=== PATIENT | female | born 1990 | race Caucasian/White ===

== ENCOUNTER 2016-11-02 10:07 | Outpatient (CLI) | payer MEDICAID | END 2016-11-02 12:20 | disposition home or self-care (01) | DX: O13.3 Gestational [pregnancy-induced] hypertension without significant proteinuria, third trimester (principal); Z3A.40 40 weeks gestation of pregnancy ==

== ENCOUNTER 2016-11-05 09:05 | Outpatient (CLI) | payer MEDICAID | END 2016-11-05 12:45 | disposition home or self-care (01) | DX: O10.013 Pre-existing essential hypertension complicating pregnancy, third trimester (principal); Z3A.39 39 weeks gestation of pregnancy; O99.333 Smoking (tobacco) complicating pregnancy, third trimester; F17.210 Nicotine dependence, cigarettes, uncomplicated; O99.213 Obesity complicating pregnancy, third trimester; E66.9 Obesity, unspecified ==

== ENCOUNTER 2016-11-12 07:26 | Emergency (ER) | payer MEDICAID ==
[2016-11-12] MEDS ORDERED: MORPHINE 2 MG/ML SYRINGE IVP STA ×2 (08:00→09:57)
[2016-11-12] MEDS ORDERED: SODIUM CHLORIDE 0.9% 1,000 ML IV ONE (08:00)
[2016-11-12] MEDS ORDERED: MORPHINE 2 MG/ML SYRINGE ONE ×2 (08:04→10:07)
== END 2016-11-12 11:10 | disposition home or self-care (01) ==
DX: O86.0 Infection of obstetric surgical wound (principal); L03.311 Cellulitis of abdominal wall; O90.0 Disruption of cesarean delivery wound; O99.335 Smoking (tobacco) complicating the puerperium

== ENCOUNTER 2016-12-02 15:14 | Outpatient (CLI) | payer MEDICAID | END 2016-12-02 15:15 | disposition home or self-care (01) | DX: R30.0 Dysuria (principal) ==

== ENCOUNTER 2016-12-07 11:07 | Emergency (ER) | payer MEDICAID ==
[2016-12-07] MEDS ORDERED: ACETAMINOPHEN 325 MG TABLET PO STA (12:17)
[2016-12-07] MEDS ORDERED: ACETAMINOPHEN 325 MG TABLET PO ONE (12:20)
== END 2016-12-07 13:30 | disposition left against medical advice (07) ==
DX: R10.9 Unspecified abdominal pain (principal); R50.9 Fever, unspecified; F17.200 Nicotine dependence, unspecified, uncomplicated; Z53.20 Procedure and treatment not carried out because of patient's decision for unspecified reasons

== ENCOUNTER 2016-12-07 18:03 | Emergency (ER) | payer MEDICAID ==
[2016-12-07] MEDS ORDERED: HYDROmorphone 1 MG/ML SYRINGE IVP STA (19:10)
[2016-12-07] MEDS ORDERED: HYDROmorphone 1 MG/ML SYRINGE ONE ×2 (19:12→19:40)
[2016-12-07] MEDS ORDERED: cefTRIAXone 1 GM VIAL IM STA (19:39)
[2016-12-07] MEDS ORDERED: HYDROmorphone 1 MG/ML SYRINGE IM STA (19:39)
[2016-12-07] MEDS ORDERED: cefTRIAXone 1 GM VIAL ONE (19:41)
[2016-12-07] MEDS ORDERED: LIDOCAINE-MPF 1% 5 ML VIAL ONE (19:41)
[2016-12-07] MEDS ORDERED: oxyCOD/ACETAMIN 5 MG/325 MG TABLET PO STA (20:29)
[2016-12-07] MEDS ORDERED: oxyCOD/ACETAMIN 5 MG/325 MG TABLET PO ONE (20:35)
== END 2016-12-07 20:49 | disposition home or self-care (01) ==
DX: N12 Tubulo-interstitial nephritis, not specified as acute or chronic (principal); F17.200 Nicotine dependence, unspecified, uncomplicated; R10.9 Unspecified abdominal pain; R50.9 Fever, unspecified; Z53.20 Procedure and treatment not carried out because of patient's decision for unspecified reasons
CPT/HCPCS: 36415; 80053; 81001; 81003; 81025; 83690; 85025; 87077; 87086; 87181; 96372; 96374; 99282; 99283; 99284; A9270; J1170

== ENCOUNTER 2017-08-05 16:36 | Emergency (ER) | payer MEDICAID ==
[2017-08-05 16:49] VITALS: BP 160/87
[2017-08-05] MEDS ORDERED: DEXAMETHASONE 10 MG/ML VIAL PO STA (16:59)
--- NOTE | 2017-08-05 17:02 | ED Physician Documentation ---
PD HPI HEENT - Stated complaint Stated Complaint: THROAT PX - Chief complaint Chief Complaint: Resp - History obtained from History obtained from: Patient - History of Present Illness Timing - onset: How many days ago (1) Timing - duration: Days (1) Timing - details: Gradual onset, Still present Location: Throat Improves: Medication Worsens: Swalllowing Associated symptoms: Congestion, Swollen nodes, Headache, Cough Similar symptoms before: Diagnosis (strep) Recently seen: Not recently seen - Additional information Additional information: 26-year-old female woke this morning with a sore throat and she has had a bit of a cough she has lost her voice she has a lot of swelling in her throat and swelling in her neck. She has had something similar to this before when she has had strep. Review of Systems Constitutional: reports: Chills, Myalgias, Fatigue. denies: Fever Eyes: denies: Decreased vision Ears: reports: Ear pain Nose: reports: Rhinorrhea / runny nose, Congestion Throat: reports: Sore throat Cardiac: denies: Chest pain / pressure, Palpitations Respiratory: reports: Cough. 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 - Present Medications Home Medications: Ambulatory Orders Medication Instructions Recorded Confirmed Amox/Clav 875/125 [Augmentin] 1 each PO Q12H #20 tablet 08/05/17 - Allergies Allergies/Adverse Reactions: Allergies Allergy/AdvReac Type Severity Reaction Status Date / Time No Known Drug Allergies Allergy Verified 06/17/16 10:05 - Social History Does the pt smoke?: Yes Smoking Status: Current every day smoker Does the pt drink ETOH?: No Does the pt have substance abuse?: No - Immunizations Immunizations are current?: Yes PD ED PE NORMAL - Vitals Vital signs reviewed: Yes (Hypertensive) - General General: No acute distress, Well developed/nourished - HEENT HEENT: Atraumatic, PERRL, EOMI, Other - Neck Neck: Supple, no meningeal sign (The left TM is erythematous in the attic and there is tympanosclerosis present the right TM is with erythema along the umbo and rounding of the landmark. The pharynx is with 2+ exudative tonsils with crypts.), No bony TTP, Other (Submandibular adenopathy is present and tender.) - Cardiac Cardiac: RRR, No murmur - Respiratory Respiratory: No respiratory distress, Clear bilaterally - Abdomen Abdomen: Soft, Non tender - Back Back: No CVA TTP, No spinal TTP - Derm Derm: Normal color, Warm and dry, No rash - Extremities Extremities: No deformity, No edema - Neuro Neuro: No motor deficit, No sensory deficit - Psych Psych: Normal mood, Normal affect Results - Vitals Vitals: Vital Signs - 24 hr 08/05/17 16:45 Temperature 37.1 C Heart Rate 93 Respiratory 18 Rate Blood Pressure 160/87 H O2 Saturation 96 Oxygen O2 Source Room air - Labs Labs: Laboratory Tests 08/05/17 17:00 Group A Strep Rapid Negative PD MEDICAL DECISION MAKING - ED course Complexity details: reviewed results, re-evaluated patient, considered differential, d/w patient, d/w family ED course: 26-year-old female with a sore throat has lost her voice she is given 10 mg of dexamethasone orally. She does have large cryptic tonsils and a rapid strep is obtained. The strep is negative and she is placed on augmentin. Departure - Departure Disposition: 01 Home, Self Care Clinical Impression: Peritonsillar abscess Condition: Stable Instructions: ED Peritonsillar Infec Abx No I andD Follow-Up: Christy Tejada ARNP [Primary Care Provider] - Prescriptions: Amox/Clav 875/125 [Augmentin] 1 each PO Q12H #20 tablet Comments: Today in the Emergency Department your blood pressure was elevated. This can happen from the stress of the visit itself, from a current illness or circumstance or from uncontrolled hypertension. If you take blood pressure medications take your usual mediations, have your blood pressure re-checked in an appropriate setting and follow up any elevation with your primary care doctor.
[2017-08-05] MEDS ORDERED: DEXAMETHASONE 10 MG/ML VIAL ONE (17:10)
[2017-08-05] MEDS ORDERED: CHERRY SYRUP 10 ML UDC PO ONE (17:10)
[2017-08-05 17:20] LABS: RAPID STREP SCREEN REAGENT QC YELLOW (YELLOW)
== END 2017-08-05 17:44 | disposition home or self-care (01) ==
LOC: ED 16:36
DX: J36 Peritonsillar abscess (principal); R03.0 Elevated blood-pressure reading, without diagnosis of hypertension; F17.200 Nicotine dependence, unspecified, uncomplicated
CPT/HCPCS: 87070; 87430; 99283; A9270

== ENCOUNTER 2017-08-06 07:48 | Emergency (ER) | payer MEDICAID ==
[2017-08-06] MEDS ORDERED: BENZONATATE 100 MG CAPSULE PO STA (08:17)
[2017-08-06] MEDS ORDERED: guaiFENesin/CODEINE 5 ML UDC PO STA (08:17)
[2017-08-06] MEDS ORDERED: ALBUTEROL NEB 2.5 MG/3 ML INH STA (08:17)
--- NOTE | 2017-08-06 08:21 | ED Physician Documentation ---
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 and rx augmentin states sore throat a little better but cough is worse and very painful no travel denies preg Review of Systems Constitutional: denies: Fever Ears: denies: Ear pain Throat: reports: Sore throat Cardiac: reports: Chest pain / pressure (with cough) Respiratory: reports: Cough : denies: Now EGA Musculoskeletal: denies: Extremity swelling PD PAST MEDICAL HISTORY - Past Medical History Psych: Depression - Past Surgical History Past Surgical History: Yes 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 - Present Medications Home Medications: Ambulatory Orders Medication Instructions Recorded Confirmed Amox/Clav 875/125 [Augmentin] 1 each PO Q12H #20 tablet 08/05/17 08/06/17 Benzonatate [Tessalon] 100 mg PO TID PRN #20 capsule 08/06/17 guaiFENesin/CODEINE [Robitussin AC] 5 - 10 ml PO Q6H PRN #120 udc 08/06/17 - Allergies Allergies/Adverse Reactions: Allergies Allergy/AdvReac Type Severity Reaction Status Date / Time No Known Drug Allergies Allergy Verified 08/06/17 08:04 - Social History Does the pt smoke?: Yes Smoking Status: Current every day smoker Does the pt drink ETOH?: No Does the pt have substance abuse?: No - Immunizations Immunizations are current?: Yes PD ED PE NORMAL - Vitals Vital signs reviewed: Yes (BP noted - she is drinking a [place] Double Shot) - General General: Alert and oriented X 3 - HEENT HEENT: PERRL, Ears normal, Moist mucous membranes. No: Pharynx benign (alondra enlarged erythematous tonsils s exudate and no trisumus or palate deviation) - Neck Neck: Supple, no meningeal sign - Cardiac Cardiac: RRR - Respiratory Respiratory: Other (dec on R, poor insp effort 2/2 discomfort) - Derm Derm: Normal color - Extremities Extremities: No edema, No calf tenderness / cord Results - Vitals Vitals: Vital Signs - 24 hr 08/06/17 08/06/17 08/06/17 08:00 08:28 08:50 Temperature 36.0 C L Heart Rate 94 113 H 119 H Respiratory 18 16 20 Rate Blood Pressure 171/112 H 160/90 H O2 Saturation 100 95 Oxygen O2 Source Room air PD MEDICAL DECISION MAKING - ED course ED course: neb did not help HR 119 after neb and double shot espresso - do not think this represents sepsis Departure - Departure Disposition: 01 Home, Self Care Clinical Impression: Bronchitis Condition: Good Prescriptions: Benzonatate [Tessalon] 100 mg PO TID PRN #20 capsule PRN Reason: to ease cough guaiFENesin/CODEINE [Robitussin AC] 5 - 10 ml PO Q6H PRN #120 udc PRN Reason: Cough Comments: The chest xray did not show pneumonia Continue the antibiotics you were already prescribed for your throat and ear. I have also prescribed medications to ease your cough Please follow up with your PMD for a recheck if not better by next week And please get your blood pressure rechecked - it was high today Forms: Activity restrictions
[2017-08-06] MEDS ORDERED: ALBUTEROL NEB 2.5 MG/3 ML INH ONE (08:30)
[2017-08-06] MEDS ORDERED: BENZONATATE 100 MG CAPSULE PO ONE (08:47)
[2017-08-06] MEDS ORDERED: guaiFENesin/CODEINE 5 ML UDC ONE (08:47)
[2017-08-06 08:51] VITALS: BP 160/90
--- NOTE | 2017-08-06 09:28 | XRAY Preliminary Report ---
Exam: XR CHEST 2 VIEW PA/LAT IMPRESSION: No focal consolidation [facility] SITE ID: [id number]
--- NOTE | 2017-08-06 09:31 | XRAY Report ---
EXAM: CHEST RADIOGRAPHY EXAM DATE: 08/06/2017 09:05 AM. CLINICAL HISTORY: Cough R lung ronchi. COMPARISON: None. TECHNIQUE: 2 views. FINDINGS: Lungs/Pleura: No focal opacities evident. No pleural effusion. No pneumothorax. Normal volumes. Mediastinum: Heart and mediastinal contours are unremarkable. Other: None. IMPRESSION: No focal consolidation [facility] Referring Provider Line: [phone] SITE ID: [id number]
== END 2017-08-06 09:58 | disposition home or self-care (01) ==
LOC: ED 07:48
DX: J40 Bronchitis, not specified as acute or chronic (principal); F17.200 Nicotine dependence, unspecified, uncomplicated
CPT/HCPCS: 71020; 94640; 99283; A9270; J7613; 94664

== ENCOUNTER 2017-11-24 11:37 | Outpatient (CLI) | payer MEDICAID ==
--- NOTE | 2017-11-24 13:29 | XRAY Report ---
DATE OF SERVICE: 11/24/2017 TWO VIEW RIGHT SHOULDER: 11/24/2017 CLINICAL INDICATION: Pain. FINDINGS: Frontal and scapular Y views of the right shoulder demonstrate no evidence of fracture or dislocation. The joint spaces are preserved. No radiopaque foreign body is seen in the soft tissues. IMPRESSION: NORMAL RIGHT SHOULDER. TD: 11/24/2017 14:28
== END 2017-11-24 11:38 | disposition home or self-care (01) ==
LOC: DI 11:37
PROVIDERS: ATTEND Nurse Practitioner Family
DX: M25.511 Pain in right shoulder (principal)

== ENCOUNTER 2017-12-11 16:42 | Outpatient (CLI) | payer MEDICAID | END 2017-12-11 16:43 | disposition home or self-care (01) | LOC: DI 16:42 | PROVIDERS: ATTEND Nurse Practitioner Family | DX: Z53.9 Procedure and treatment not carried out, unspecified reason (principal) ==

== ENCOUNTER 2017-12-22 11:49 | Outpatient (CLI) | payer MEDICAID ==
--- NOTE | 2017-12-22 15:26 | XRAY Report ---
COMPLETE CERVICAL SPINE WITH FLEXION AND EXTENSION: 12/22/2017 CLINICAL INDICATION: Neck pain. FINDINGS: AP, lateral neutral, lateral flexion, lateral extension, odontoid views of the cervical spine were obtained. There is reversal of the normal cervical lordosis on the lateral view. No abnormal motion is identified on flexion or extension to suggest ligamentous laxity. No significant osseous neural foraminal narrowing is present. There is no evidence of acute fracture or subluxation. IMPRESSION: REVERSAL OF THE NORMAL CERVICAL LORDOSIS ON THE NEUTRAL VIEW. NO EVIDENCE OF LIGAMENTOUS LAXITY ON FLEXION OR EXTENSION. TD: 12/22/2017 15:25
== END 2017-12-22 11:50 | disposition home or self-care (01) ==
LOC: DI.S 11:49
PROVIDERS: ATTEND Nurse Practitioner Family
DX: M54.2 Cervicalgia (principal)
CPT/HCPCS: 72052

== ENCOUNTER 2018-04-12 20:59 | Emergency (ER) | payer MEDICAID ==
--- NOTE | 2018-04-12 21:13 | ED Physician Documentation ---
PD HPI UPPER EXT INJURY - Stated complaint Stated Complaint: RT ARM INJ - Chief complaint Chief Complaint: Laceration - History obtained from History obtained from: Patient - History of Present Illness Location: Right, Forearm Type of injury: Laceration (she slipped and fell and put hand through glass window pane. Large laceration of forearm. Had brisk bleeding of it.). 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 - Allergies Allergies/Adverse Reactions: Allergies Allergy/AdvReac Type Severity Reaction Status Date / Time No Known Drug Allergies Allergy Verified 04/12/18 21:05 - Social History Does the pt smoke?: Yes Smoking Status: Current every day smoker Does the pt drink ETOH?: No Does the pt have substance abuse?: No - Immunizations Immunizations are current?: Yes Immunizations: TDAP current <10years PD ED PE NORMAL - Vitals Vital signs reviewed: Yes - General General: Alert and oriented X 3, Well developed/nourished - Derm Derm: Normal color, Warm and dry - Extremities Extremities: Other (right forearm with large laceration to fatty tissue. No FB seen. Small vessel squirting of blood when pressure taken off. No major vessel injury. Normal sensation and color/cap refill in fingers. Good wrist and finger movements. ) - Neuro Neuro: Alert and oriented X 3, No motor deficit, No sensory deficit Results - Vitals Vitals: Oxygen O2 Source Room air Procedures - Laceration (location) right forearm Length in cm: 6 Wound type: Linear, Into subcut fat, Clean. No: Into muscle, Contaminated Neurovascular status: Sensory intact, Motor intact, Vascular intact Tendon involvement: No: Tendon Injury Anesthesia: Lidocaine 2% with epi, Marcaine 0.5% Wound Preparation: Irrigated copiously NS, Wound explored, To the base. No: FB identified Deep layer closure: Vicryl, size #-0 - enter number (5), # sutures - enter number (8) Skin layer closure: Nylon, Running, Size #-0 - enter number (4), Sutures - enter # (25) Other: Patient tolerated well, No complications, Neurovascular intact, Dressing applied, Tetanus UTD Complexity: Simple PD MEDICAL DECISION MAKING - ED course Complexity details: considered differential (laceration to fatty tissue and no deep structures. Sutured satisfactorily. ), d/w patient - Sepsis Event Vital Signs: Oxygen O2 Source Room air Departure - Departure Disposition: 01 Home, Self Care Clinical Impression: Laceration of right forearm Qualifiers: Encounter type: initial encounter Qualified Code(s): S51.811A - Laceration without foreign body of right forearm, initial encounter Condition: Stable Record reviewed to determine appropriate education?: Yes Instructions: ED Laceration All Follow-Up: Christy Tejada ARNP [Primary Care Provider] - Comments: It is okay to wash and shower. Clean off the wound twice a day with soap and water, or peroxide and water. Apply some antibiotic ointment to it to keep it moist. Also to watch for signs of infection such as purulence, redness or increasing pain. Return to your primary care or the ER at the specified time for suture removal. Tylenol or ibuprofen if needed for pains. Suture removal 9 -10 days. Discharge Date/Time: 04/12/18 22:15
[2018-04-12 22:07] VITALS: BP 154/80
== END 2018-04-12 22:15 | disposition home or self-care (01) ==
LOC: ED 20:59
DX: S51.811A Laceration without foreign body of right forearm, initial encounter (principal); W01.110A Fall on same level from slipping, tripping and stumbling with subsequent striking against sharp glass, initial encounter; F17.200 Nicotine dependence, unspecified, uncomplicated
CPT/HCPCS: 12002; 99282; 99283

== ENCOUNTER 2018-04-20 20:29 | Outpatient (CLI) | payer MEDICAID ==
--- NOTE | 2018-04-21 08:43 | Ultrasound Report ---
Procedure Date: 04/20/2018 Accession Number: [id number] / [id number] Procedure: US - Ext Limited Non Vascular CPT Code: FULL RESULT: EXAM: Ext Limited Non Vascular DATE: 04/20/2018 9:03 PM CLINICAL HISTORY: SOFT MASS IN LEFT FEMORAL LYMPH CHAIN, LYMPHADENOPATHY TECHNIQUE: Ultrasound of the left inguinal region was performed, with automobile rental representative static images obtained. COMPARISON: None FINDINGS: There are varicose veins in the region, as well as nonenlarged left inguinal lymph nodes. No adenopathy is present. IMPRESSION: Varicose veins and normal sized left inguinal lymph nodes. No evidence of lymphadenopathy.
== END 2018-04-20 20:30 | disposition home or self-care (01) ==
LOC: DI 20:29
PROVIDERS: ATTEND Nurse Practitioner Family
DX: I86.8 Varicose veins of other specified sites (principal)
CPT/HCPCS: 76882

== ENCOUNTER 2018-11-17 20:08 | Emergency (ER) | payer MEDICAID ==
[2018-11-17] MEDS ORDERED: DEXAMETHASONE 10 MG/ML VIAL PO STA (20:40)
[2018-11-17] MEDS ORDERED: IBUPROFEN 800 MG TABLET PO STA (20:40)
--- NOTE | 2018-11-17 20:43 | ED Physician Documentation ---
History of Present Illness - Stated complaint Stated Complaint: SORE THROAT - Chief complaint Chief Complaint: Heent - History obtained from History obtained from: Patient - History of Present Illness Timing: How many days ago (4) Pain level max: 3 Pain level now: 3 Improved by: rest Worsened by: sore throat is worse in the morning. - Additonal information Additional information: 27-year-old female states she has been sick for the past 3-4 days. No fevers. Has had runny nose and congestion. States her throat has been sore over the past 3 days. Today she developed exudates. She is coughing as well. Mostly dry but does bring up some sputum. No wheezing. 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 - Present Medications Home Medications: Ambulatory Orders Medication Instructions Recorded Confirmed Benzonatate [Tessalon Perle] 100 - 200 mg PO TID PRN #30 capsule 11/17/18 Cetirizine HCl/Pseudoephedrine 1 each PO BID PRN #30 tab.er.12h 11/17/18 [Zyrtec-D Tablet] Ibuprofen [Motrin] 800 mg PO Q8H PRN #30 tablet 11/17/18 - Allergies Allergies/Adverse Reactions: Allergies Allergy/AdvReac Type Severity Reaction Status Date / Time No Known Drug Allergies Allergy Verified 11/17/18 20:15 - Social History Does the pt smoke?: Yes Smoking Status: Current every day smoker Does the pt drink ETOH?: Yes Does the pt have substance abuse?: No - Immunizations Immunizations are current?: Yes Immunizations: TDAP current <10years - POLST Patient has POLST: No PD ED PE NORMAL - Vitals Vital signs reviewed: Yes - General General: Alert and oriented X 3, No acute distress, Well developed/nourished - HEENT HEENT: PERRL, Ears normal, Moist mucous membranes, Other (Mild posterior oropharyngeal erythema with mild tonsillar exudates. They are white. Uvula midline. No trismus. Normal phonation) - Neck Neck: Supple, no meningeal sign, No adenopathy - Cardiac Cardiac: RRR, Strong equal pulses - Respiratory Respiratory: No respiratory distress, Clear bilaterally - Abdomen Abdomen: Soft, Non tender, Non distended - Back Back: No spinal TTP - Derm Derm: Warm and dry - Extremities Extremities: No edema - Neuro Neuro: Alert and oriented X 3 - Psych Psych: Normal mood, Normal affect Results - Vitals Vitals: Vital Signs - 24 hr 11/17/18 20:12 Temperature 36.7 C Heart Rate 96 Respiratory 18 Rate Blood Pressure 165/100 H O2 Saturation 97 Oxygen O2 Source Room air - Labs Labs: Laboratory Tests 11/17/18 20:10 Group A Strep Rapid Negative PD MEDICAL DECISION MAKING - ED course Complexity details: reviewed results, considered differential, d/w patient ED course: 27-year-old female with what appears to be a viral URI and viral pharyngitis. Rapid strep is negative. Given dexamethasone here. We will continue supportive care and follow-up with her doctor. She is very well-appearing, nontoxic. Patient counseled regarding signs and symptoms for which I believe and urgent re-evaluation would be necessary. Patient with good understanding of and agreement to plan and is comfortable going home at this time This document was made in part using voice recognition software. While efforts are made to proofread this document, sound alike and grammatical errors may occur. Departure - Departure Disposition: 01 Home, Self Care Clinical Impression: Viral URI, Acute viral pharyngitis Condition: Good Instructions: ED Pharyngitis Viral Follow-Up: Christy Tejada ARNP [Primary Care Provider] - As Needed Prescriptions: Benzonatate [Tessalon Perle] 100 - 200 mg PO TID PRN #30 capsule PRN Reason: Cough Cetirizine HCl/Pseudoephedrine [Zyrtec-D Tablet] 1 each PO BID PRN #30 tab.er.12h PRN Reason: nasal congestion Ibuprofen [Motrin] 800 mg PO Q8H PRN #30 tablet PRN Reason: PAIN &/OR FEVER Comments: Drink plenty of fluids and rest. Return if you worsen. Your rapid strep is negative today. A backup culture was sent and we will call you if antibiotics are needed. Your medications were sent to [facility] in [place] today
[2018-11-17 20:59] VITALS: BP 168/102
== END 2018-11-17 21:03 | disposition home or self-care (01) ==
LOC: ED 20:08
DX: J02.9 Acute pharyngitis, unspecified (principal); B97.89 Other viral agents as the cause of diseases classified elsewhere
CPT/HCPCS: 87070; 87430; 99283; A9270

== ENCOUNTER 2019-02-24 22:11 | Emergency (ER) | payer MEDICAID ==
[2019-02-24] MEDS ORDERED: BUFFERED LIDOCAINE 10 ML SYRINGE SUBQ STA (22:22)
--- NOTE | 2019-02-24 22:25 | ED Physician Documentation ---
PD HPI UPPER EXT INJURY - Stated complaint Stated Complaint: ARM LAC - Chief complaint Chief Complaint: Laceration - History obtained from History obtained from: Patient - History of Present Illness Location: Left, Forearm Type of injury: Laceration Where injury occurred: Home Timing - onset: Today Timing - duration: Minutes Timing - details: Abrupt onset, Still present Improved by: Rest, Immobilization Worsened by: Moving, Palpating Associated symptoms: No: Weakness, Numbness, Tingling, Swelling Contributing factors: No: Anticoagulated Similar symptoms before: Diagnosis (lacearation) Recently seen: Not recently seen - Additonal information Additional information: 28-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 She is coming now for suturing. Review of Systems Constitutional: denies: Fever, Chills Eyes: denies: Decreased vision Ears: denies: Ear pain Nose: denies: Congestion Throat: denies: Sore throat Respiratory: denies: Cough GI: denies: Vomiting Skin: reports: Laceration (s). denies: Rash Musculoskeletal: reports: Extremity pain. 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 - Present Medications Home Medications: Ambulatory Orders Medication Instructions Recorded Confirmed Benzonatate [Tessalon Perle] 100 - 200 mg PO TID PRN #30 capsule 11/17/18 Cetirizine HCl/Pseudoephedrine 1 each PO BID PRN #30 tab.er.12h 11/17/18 [Zyrtec-D Tablet] Ibuprofen [Motrin] 800 mg PO Q8H PRN #30 tablet 11/17/18 - Allergies Allergies/Adverse Reactions: Allergies Allergy/AdvReac Type Severity Reaction Status Date / Time No Known Drug Allergies Allergy Verified 02/24/19 22:19 - Social History Does the pt smoke?: Yes Smoking Status: Current every day smoker Does the pt drink ETOH?: Yes Does the pt have substance abuse?: No - Immunizations Immunizations are current?: Yes Immunizations: TDAP current <10years - POLST Patient has POLST: No PD ED PE NORMAL - Vitals Vital signs reviewed: Yes (tachy and hypertensive ) - General General: Alert and oriented X 3, No acute distress, Well developed/nourished - HEENT HEENT: Atraumatic, PERRL, EOMI - Respiratory Respiratory: No respiratory distress - Derm Derm: Normal color, Warm and dry, No rash - Extremities Extremities: No deformity, No edema, Other (There is a 4.5cm laceration to the volar forearm on the right side with 2 additional scratches parallel to the deeper laceration. ) - Neuro Neuro: Alert and oriented X 3, advocacy director 2-12 intact, No motor deficit, No sensory deficit, Normal speech Eye Opening: Spontaneous Motor: Obeys Commands Verbal: Oriented GCS Score: 15 - Psych Psych: Normal mood, Normal affect Results - Vitals Vitals: Vital Signs - 24 hr 02/24/19 02/24/19 02/24/19 22:17 22:26 23:05 Temperature 37.2 C Heart Rate 119 H Respiratory 17 17 17 Rate Blood Pressure 182/116 H O2 Saturation 98 02/24/19 23:08 Temperature Heart Rate Respiratory Rate Blood Pressure 154/102 H O2 Saturation Oxygen O2 Source Room air Procedures - Laceration (location) left forearm Length in cm: 4.5 Wound type: Linear, Clean Neurovascular status: Sensory intact, Motor intact, Vascular intact Anesthesia: Lidocaine 1%, With bicarb Wound Preparation: Hibiclens, Irrigated copiously NS, Wound explored, To the base Skin layer closure: Nylon, Interrupted (horizontal matress), Size #-0 - enter number Other: Patient tolerated well, No complications, Neurovascular intact, Dressing applied, Tetanus UTD Complexity: Simple PD MEDICAL DECISION MAKING - ED course Complexity details: re-evaluated patient, considered differential, d/w patient ED course: 28-year-old female with a laceration to her forearm has 2 other scratches next to it she explains that these happened when she was getting some king into a pot just happens that these scratches are right next to where she cut herself. She is sutured she is up-to-date on her tetanus. She denies any depression or SI. Departure - Departure Disposition: 01 Home, Self Care Clinical Impression: Forearm laceration Condition: Stable Instructions: ED Laceration Ext Sutr Stap Tape Follow-Up: Fly,Christy M, MANAGER REVIEW [Primary Care Provider] - Comments: Today in the Emergency Department your blood pressure was elevated. This can happen from the stress of the visit itself, from a current illness or circumstance or from uncontrolled hypertension. If you take blood pressure medications take your usual mediations, have your blood pressure re-checked in an appropriate setting and follow up any elevation with your primary care doctor. Sutures will need to be removed and 10 days. Discharge Date/Time: 02/24/19 23:09
[2019-02-24 23:08] VITALS: BP 154/102
== END 2019-02-24 23:09 | disposition home or self-care (01) ==
LOC: ED 22:11
DX: S51.812A Laceration without foreign body of left forearm, initial encounter (principal); S50.812A Abrasion of left forearm, initial encounter; W26.0XXA Contact with knife, initial encounter; Y93.E9 Activity, other interior property and clothing maintenance; Y92.000 Kitchen of unspecified non-institutional (private) residence as the place of occurrence of the external cause; R03.0 Elevated blood-pressure reading, without diagnosis of hypertension; F17.200 Nicotine dependence, unspecified, uncomplicated
CPT/HCPCS: 12002; 99282; 99283

== ENCOUNTER 2019-02-27 12:55 | Emergency (ER) | payer MEDICAID ==
[2019-02-27 13:32] VITALS: BP 152/108
[2019-02-27] MEDS ORDERED: cephALEXin 250 MG CAPSULE PO STA (13:32)
--- NOTE | 2019-02-27 13:34 | ED Physician Documentation ---
PD HPI SKIN - Stated complaint Stated Complaint: L ARM WOUND CHECK - Chief complaint Chief Complaint: Laceration - History obtained from History obtained from: Patient - History of Present Illness Timing - onset: Other (She had her left arm sutured a few days ago. Tetanus is up-to-date. There is mild redness and pain around the wound now without drainage. 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 - Present Medications Home Medications: Ambulatory Orders Medication Instructions Recorded Confirmed Benzonatate [Tessalon Perle] 100 - 200 mg PO TID PRN #30 capsule 11/17/18 Cetirizine HCl/Pseudoephedrine 1 each PO BID PRN #30 tab.er.12h 11/17/18 [Zyrtec-D Tablet] Ibuprofen [Motrin] 800 mg PO Q8H PRN #30 tablet 11/17/18 Cephalexin [Keflex] 500 mg PO Q6H #28 capsule 02/27/19 - Allergies Allergies/Adverse Reactions: Allergies Allergy/AdvReac Type Severity Reaction Status Date / Time No Known Drug Allergies Allergy Verified 02/27/19 13:32 - Social History Does the pt smoke?: Yes Smoking Status: Current every day smoker Does the pt drink ETOH?: Yes Does the pt have substance abuse?: No - Immunizations Immunizations are current?: Yes Immunizations: TDAP current <10years - POLST Patient has POLST: No PD ED PE NORMAL - Vitals Vital signs reviewed: Yes - General General: Alert and oriented X 3, No acute distress - Extremities Extremities: Other (There is a sutured laceration to the distal anterior forearm with very mild surrounding cellulitis but no drainage. Normal range of motion.) - Neuro Neuro: Alert and oriented X 3, Normal speech Results - Vitals Vitals: Vital Signs - 24 hr 02/27/19 13:29 Temperature 36.8 C Heart Rate 93 Respiratory 14 Rate Blood Pressure 152/108 H O2 Saturation 98 Oxygen O2 Source Room air Departure - Departure Disposition: 01 Home, Self Care Clinical Impression: Left arm cellulitis Condition: Good Record reviewed to determine appropriate education?: Yes Instructions: Cellulitis Dc Prescriptions: Cephalexin [Keflex] 500 mg PO Q6H #28 capsule Comments: As discussed for a severe infection I would take the sutures out, it seems pretty mild at this juncture but if it worsens while on the antibiotics please return quickly for reevaluation.
== END 2019-02-27 13:41 | disposition home or self-care (01) ==
LOC: ED 12:55
DX: L03.114 Cellulitis of left upper limb (principal); F17.200 Nicotine dependence, unspecified, uncomplicated
CPT/HCPCS: 99283; A9270

== ENCOUNTER 2019-02-28 19:09 | Emergency (ER) | payer MEDICAID ==
[2019-02-28] MEDS ORDERED: SULFAMETH/TRIMETH DS 800/160 MG TABLET PO STA (19:52)
[2019-02-28] MEDS ORDERED: BUFFERED LIDOCAINE 10 ML SYRINGE SUBQ STA (19:52)
--- NOTE | 2019-02-28 19:54 | ED Physician Documentation ---
PD HPI SKIN - Stated complaint Stated Complaint: WOUND CHECK - Chief complaint Chief Complaint: Wound - History of Present Illness Timing - onset: Other (She has a sutured wound on the left forearm. She was seen by me yesterday for a wound infection, placed on Keflex. It is worse today with some drainage now.) Review of Systems Ten Systems: 10 systems reviewed and negative Constitutional: denies: Fever, Chills Respiratory: reports: Reviewed and negative GI: reports: Reviewed and negative PD PAST MEDICAL HISTORY - Past Medical History Past Medical History: No Cardiovascular: None Respiratory: None Neuro: None Endocrine/Autoimmune: None GI: None MENTAL HEALTH PROGRAM DIRECTOR: None : None HEENT: None Psych: Depression Musculoskeletal: None Derm: None Other Past Medical History: denies - Past Surgical History Past Surgical History: Yes Ortho: Shoulder arthroplasty /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 - Present Medications Home Medications: Ambulatory Orders Medication Instructions Recorded Confirmed Ibuprofen [Motrin] 800 mg PO Q8H PRN #30 tablet 11/17/18 02/27/19 Cephalexin [Keflex] 500 mg PO Q6H #28 capsule 02/27/19 Sulfamethoxazole/Trimethoprim 1 each PO BID #14 tablet 02/28/19 [Sulfamethoxazole-Tmp Ds Tablet] - Allergies Allergies/Adverse Reactions: Allergies Allergy/AdvReac Type Severity Reaction Status Date / Time No Known Drug Allergies Allergy Verified 02/27/19 13:32 - Social History Does the pt smoke?: Yes Smoking Status: Current every day smoker Does the pt drink ETOH?: Yes Does the pt have substance abuse?: No - Immunizations Immunizations are current?: Yes Immunizations: TDAP current <10years - POLST Patient has POLST: No PD ED PE NORMAL - Vitals Vital signs reviewed: Yes - General General: Alert and oriented X 3, No acute distress - Extremities Extremities: Other (There is a sutured wound on the left forearm with slightly increased cellulitis from yesterday and now a little pustular lesion near 1 of the sutures and some serous drainage from the wound itself. The pustular lesion was cultured during examination.) - Neuro Neuro: Alert and oriented X 3, Normal speech Results - Vitals Vitals: Vital Signs - 24 hr 02/28/19 19:12 Temperature 37 C Heart Rate 123 H Respiratory 18 Rate Blood Pressure 177/107 H O2 Saturation 97 Oxygen O2 Source Room air PD MEDICAL DECISION MAKING - ED course ED course: The left forearm was prepped with Hibiclens and draped and locally infiltrated with buffered lidocaine, the sutures removed. The wound did not gape and Steri- Strips were placed and she was given advice on wound care. Bactrim was added to her regimen and a culture was obtained. Departure - Departure Disposition: 01 Home, Self Care Clinical Impression: Postoperative cellulitis of surgical wound Condition: Good Record reviewed to determine appropriate education?: Yes Prescriptions: Sulfamethoxazole/Trimethoprim [Sulfamethoxazole-Tmp Ds Tablet] 1 each PO BID #14 tablet Comments: Continue the current antibiotic. Return if worsening. We are performing a wound culture, the results should be done in 48-72 hours. If antibiotic change is necessary we will call you. Return if worse in the elda ntime, especially if you develop increased pain, fevers, cannot keep down the medication. Otherwise follow-up with your physician in approximately 2-3 days.
[2019-02-28] MEDS ORDERED: HYDROcod/ACET 5/325 Prepack 4 PO STA (20:09)
[2019-02-28 20:17] VITALS: BP 163/113
== END 2019-02-28 20:27 | disposition home or self-care (01) ==
LOC: ED 19:09
DX: T81.41XA Infection following a procedure, superficial incisional surgical site, initial encounter (principal); L03.114 Cellulitis of left upper limb; Y83.9 Surgical procedure, unspecified as the cause of abnormal reaction of the patient, or of later complication, without mention of misadventure at the time of the procedure; F17.200 Nicotine dependence, unspecified, uncomplicated
CPT/HCPCS: 87070; 87205; 99283; A9270; 87181

== ENCOUNTER 2019-08-09 08:00 | Outpatient (CLI) | payer MEDICAID ==
[2019-08-09 21:07] LABS: CANDIDA GROUP DNA POSITIVE (NEGATIVE); CANDIDA KRUSEI DNA NEGATIVE (NEGATIVE); TRICHOMONAS VAGINALIS DNA NEGATIVE (NEGATIVE)
== END 2019-08-09 23:59 | disposition home or self-care (01) ==
LOC: LAB.R 08:00
PROVIDERS: ATTEND Obstetrics & Gynecology
DX: Z01.419 Encounter for gynecological examination (general) (routine) without abnormal findings (principal)
CPT/HCPCS: 87661; 87801

== ENCOUNTER 2019-09-10 16:32 | Outpatient (CLI) | payer MEDICAID ==
--- NOTE | 2019-09-11 01:34 | Ultrasound Report ---
Reason: POLYCYSTIC OVARY SYNDROME Procedure Date: 09/10/2019 Accession Number: [id number] / [id number] Procedure: US - Pelvic w/Transvaginal CPT Code: Final Report FULL RESULT: EXAM: PELVIC ULTRASOUND EXAM DATE: 09/10/2019 05:43 PM. CLINICAL HISTORY: POLYCYSTIC OVARY SYNDROME. COMPARISON: 12/01/2010. TECHNIQUE: Realtime transabdominal pelvic scan performed to identify the uterus and adnexa and as an overview of other pelvic structures, followed by transvaginal scan to provide greater detail of the uterus and adnexa, with static image documentation. FINDINGS: Uterus: 9.4 x 5.5 x 3.1 cm, volume 83 cc. Anteverted position. Normal overall size and echotexture. Masses: None. Endometrium: 8 mm. Trace fluid in the endometrial canal. Cervix: Unremarkable. Right Ovary: 2.7 x 2.4 x 2.3 cm, volume 8 cc. Normal echotexture and blood flow. Left Ovary: 3.5 x 3.5 x 2.2 cm, volume 14 cc. Normal echotexture and blood flow. Free Fluid: None. Other: None. IMPRESSION: Normal pelvic ultrasound. RADIA
== END 2019-09-10 16:33 | disposition home or self-care (01) ==
LOC: DI 16:32
PROVIDERS: ATTEND Obstetrics & Gynecology
DX: E28.2 Polycystic ovarian syndrome (principal)
CPT/HCPCS: 76830; 76856

== ENCOUNTER 2019-10-27 07:16 | Emergency (ER) | payer MEDICAID ==
[2019-10-27 07:28] VITALS: BP 159/93
--- NOTE | 2019-10-27 07:42 | ED Physician Documentation ---
History of Present Illness - Stated complaint Stated Complaint: COUGH/PX - Chief complaint Chief Complaint: Resp - Additonal information Additional information: This is a 28-year-old female presents with cough, fever, sore throat, nasal congestion. Symptoms began a couple days ago, she has had a cough productive of some yellow sputum, she has had a sore throat, and a cough. After multiple episodes of coughing she has a bit of chest soreness, at rest she denies chest pain. She states that her breathing feels good at me takes a deep breath it triggers coughing. She has not had any vomiting, no abdominal pain. She took Tylenol at 4 AM this morning, otherwise has not taken any medications for this. She has had multiple sick contacts with similar symptoms at her work. 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 - Present Medications Home Medications: Ambulatory Orders Medication Instructions Recorded Confirmed Benzonatate 200 mg PO TID PRN #20 capsule 10/27/19 - Allergies Allergies/Adverse Reactions: Allergies Allergy/AdvReac Type Severity Reaction Status Date / Time No Known Drug Allergies Allergy Verified 10/27/19 07:28 - Social History Does the pt smoke?: Yes Smoking Status: Current every day smoker Does the pt drink ETOH?: Yes Does the pt have substance abuse?: No - Immunizations Immunizations are current?: Yes Immunizations: TDAP current <10years - POLST Patient has POLST: No PD ED PE NORMAL - General General: Well developed/nourished - HEENT HEENT: Other (Posterior pharynx is erythematous, no exudate. Uvula is midline.) - Neck Neck: Other - Cardiac Cardiac: RRR - Respiratory Respiratory: No respiratory distress, Other (Intermittent cough. Lungs are clear to auscultation bilaterally, no crackles or wheezes.) - Abdomen Abdomen: Non distended - Extremities Extremities: No deformity - Neuro Neuro: Alert and oriented X 3 Results - Vitals Vitals: Oxygen O2 Source Room air PD MEDICAL DECISION MAKING - ED course ED course: Patient presents with symptoms Consistent with a viral URI. She has a cough, no exudate, no significant anterior cervical lymphadenopathy, making strep throat unlikely. She has no signs of pneumonia, her lungs are clear, the duration of her symptoms has been few days, and her oxygen saturation is normal on room air. She does not have signs of a bacterial infection at this time and is well- appearing. She has some mild diffuse chest discomfort only after repeated coughing, she has none at rest, and her history makes ACS, PE, or other acute cardiopulmonary pathology extremely unlikely. I discussed supportive care, prescribed her medication for symptomatic control, and recommended primary care follow-up. Patient agreed and was discharged home in good condition Departure - Departure Disposition: 01 Home, Self Care Clinical Impression: Viral URI Condition: Good Instructions: ED Viral Syndrome Follow-Up: Geri Scherer ARNP, [employer]IONER-C [Primary Care Provider] - Prescriptions: Benzonatate 200 mg PO TID PRN #20 capsule PRN Reason: Cough Comments: You appear to have a viral illness today. We gave you a steroid which should help with the sore throat. I am also prescribing you Tessalon Perles for your cough. You may take an [id number] cold/flu relief medication, or you may try Tylenol 650 mg ibuprofen 600 mg every 6 hours as needed for fever or discomfort. If you are having difficulty breathing or any other worsening or new concerning symptoms please return to the emergency department Forms: Activity restrictions Discharge Date/Time: 10/27/19 08:16
[2019-10-27] MEDS ORDERED: CHERRY SYRUP 10 ML UDC PO ONE (07:54)
[2019-10-27] MEDS ORDERED: IBUPROFEN 600 MG TABLET PO STA (07:54)
[2019-10-27] MEDS ORDERED: DEXAMETHASONE 10 MG/ML VIAL PO STA (07:54)
== END 2019-10-27 08:16 | disposition home or self-care (01) ==
LOC: ED 07:16
DX: J06.9 Acute upper respiratory infection, unspecified (principal); F17.200 Nicotine dependence, unspecified, uncomplicated
CPT/HCPCS: 99282; 99284; A9270

== ENCOUNTER 2019-10-29 06:17 | Emergency (ER) | payer MEDICAID ==
[2019-10-29 06:23] VITALS: BP 148/101
[2019-10-29 06:55] LABS: RAPID STREP SCREEN POSITIVE (Negative)
[2019-10-29] MEDS ORDERED: PENICILLIN G BENZATHINE 600,000 UNIT/ML SYRINGE IM STA (07:05)
[2019-10-29] MEDS ORDERED: DEXAMETHASONE 10 MG/ML VIAL PO STA (07:06)
[2019-10-29] MEDS ORDERED: CHERRY SYRUP 10 ML UDC PO ONE (07:06)
--- NOTE | 2019-10-29 07:10 | ED Physician Documentation ---
History of Present Illness - Stated complaint Stated Complaint: SORE THROAT - Chief complaint Chief Complaint: Heent - Additonal information Additional information: This is a 28-year-old female presents with worsening sore throat. She was seen for sore throat cough nasal congestion 2 days ago, she was given a steroid which she states helps temporarily but then her sore throat is gotten worse. Her cough is gotten better and her breathing feels better than before. The Tessalon Perles have helped a little bit. She does not know if she has had a fever or not. 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 - Present Medications Home Medications: Ambulatory Orders Medication Instructions Recorded Confirmed Benzonatate 200 mg PO TID PRN #20 capsule 10/27/19 - Allergies Allergies/Adverse Reactions: Allergies Allergy/AdvReac Type Severity Reaction Status Date / Time No Known Drug Allergies Allergy Verified 10/29/19 06:23 - Social History Does the pt smoke?: Yes Smoking Status: Current every day smoker Does the pt drink ETOH?: Yes Does the pt have substance abuse?: No - Immunizations Immunizations are current?: Yes Immunizations: TDAP current <10years - POLST Patient has POLST: No PD ED PE NORMAL - Vitals Vital signs reviewed: Yes - General General: Alert and oriented X 3 - HEENT HEENT: Atraumatic, Other (Posterior pharynx is erythematous, tonsils are edematous, no exudate. Uvula is midline) - Cardiac Cardiac: RRR - Respiratory Respiratory: No respiratory distress, Clear bilaterally, Other (intermittent cough) - Abdomen Abdomen: Soft, Non distended - Derm Derm: Warm and dry - Extremities Extremities: No deformity - Neuro Neuro: Alert and oriented X 3 Results - Vitals Vitals: Vital Signs - 24 hr 10/29/19 06:19 Temperature 36.6 C Heart Rate 82 Respiratory 16 Rate Blood Pressure 148/101 H O2 Saturation 98 Oxygen O2 Source Room air - Labs Labs: Laboratory Tests 10/29/19 06:30 Group A Strep Rapid POSITIVE H PD MEDICAL DECISION MAKING - ED course ED course: Patient presents with worsening sore throat, her symptoms appear more consistent with a viral URI 2 days ago, but she has more inflammation of her posterior pharynx today and her strep swab is positive. 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 I discussed options for treatment and she elected for penicillin which was given intramuscularly. I also gave her a half dose of dexamethasone to help with the inflammation. I reviewed supportive care in addition to the antibiotic treatment, and patient agreed. She was discharged home after return precautions were discussed Departure - Departure Disposition: Home, Self Care Clinical Impression: Strep pharyngitis Condition: Good Instructions: ED Strep Pharyngitis Conf Follow-Up: Geri Scherer ARNP, [employer] [facility] [Primary Care Provider] - Comments: Your strep swab was positive today. We have treated you with a dose of antibiotics which should cover this. You may continue to use Tylenol, ibuprofen, throat lozenges for discomfort. If you developing worsening symptoms such as increased throat pain despite treatment, Inability to swallow, or swelling on one side of your face or throat, return to the emergency department
== END 2019-10-29 07:48 | disposition home or self-care (01) ==
LOC: ED 06:17
DX: J02.0 Streptococcal pharyngitis (principal); F17.200 Nicotine dependence, unspecified, uncomplicated
CPT/HCPCS: 87430; 96372; 99283; A9270

== ENCOUNTER 2019-11-11 10:39 | Emergency (ER) | payer MEDICAID ==
[2019-11-11 11:09] VITALS: BP 150/107
--- NOTE | 2019-11-11 12:08 | ED Physician Documentation ---
History of Present Illness - Stated complaint Stated Complaint: SORE THROAT - Chief complaint Chief Complaint: Heent - Additonal information Additional information: This is a 28-year-old female who presents with strep throat. She developed a sore throat as well as subjective fever, in the absence of rhinorrhea or cough several days ago, she saw her primary care provider yesterday who did a strep test which was positive, she was told that antibiotic should be sent over to the pharmacy, but when she went to the pharmacy they were not there and the clinic is now closed. She is hoping to get antibiotics. She has no chest pain, shortness of breath, vomiting Review of Systems Nose: denies: Rhinorrhea / runny nose Throat: reports: Sore throat PD PAST MEDICAL HISTORY - Past Medical History Past Medical History: Yes Cardiovascular: None Respiratory: None Neuro: None Endocrine/Autoimmune: None GI: None COMMISSIONER PUBLIC WORKS: None : None HEENT: None Psych: Depression Musculoskeletal: None Derm: None - Past Surgical History Past Surgical History: Yes Ortho: Shoulder arthroplasty /COMMISSIONER PUBLIC WORKS: section - Present Medications Home Medications: Ambulatory Orders Medication Instructions Recorded Confirmed Benzonatate 200 mg PO TID PRN #20 capsule 10/27/19 Amoxicillin 500 mg PO BID #20 capsule 11/11/19 - Allergies Allergies/Adverse Reactions: Allergies Allergy/AdvReac Type Severity Reaction Status Date / Time No Known Drug Allergies Allergy Verified 11/11/19 11:09 - Social History Does the pt smoke?: Yes Smoking Status: Current every day smoker Does the pt drink ETOH?: Yes Does the pt have substance abuse?: No - Immunizations Immunizations are current?: Yes Immunizations: TDAP current <10years - POLST Patient has POLST: No PD ED PE NORMAL - General General: Alert and oriented X 3 - HEENT HEENT: Other (Tonsils are erythematous, edematous, symmetric, uvula is midline. There is no exudate. There are no ulcerations or other lesions.) - Neck Neck: Supple, no meningeal sign - Cardiac Cardiac: RRR - Respiratory Respiratory: No respiratory distress - Extremities Extremities: No deformity - Neuro Neuro: Alert and oriented X 3 Results - Vitals Vitals: Vital Signs - 24 hr 11/11/19 11:07 Temperature 36.3 C L Heart Rate 82 Respiratory 16 Rate Blood Pressure 150/107 H O2 Saturation 97 Oxygen O2 Source Room air PD MEDICAL DECISION MAKING - ED course ED course: Patient presents with clinical symptoms consistent with strep throat and a po sitive strep test yesterday, she is just here to get antibiotics as she was unable to bead picker the ones that were reportedly sent in by her primary care provider. After discussing treatment options with her, we decided on amoxicillin for 10 days, she was given a dose of dexamethasone here. She has no signs of GROCERY CLERK CHECKING or more serious infection at this time. I reviewed return precautions and patient was discharged home in good condition Departure - Departure Disposition: 01 Home, Self Care Clinical Impression: Strep throat Condition: Good Instructions: ED Strep Pharyngitis Conf Follow-Up: Geri Scherer ARNP, AD TERMINAL MAKEUP OPERATOR-C [Primary Care Provider] - (With any persistent symptoms) Prescriptions: Amoxicillin 500 mg PO BID #20 capsule Comments: Return to the emergency department if you develop any worsening such as facial swelling, inability to swallow liquids, fever despite the antibiotic treatment. Please take the entire course of antibiotics.
[2019-11-11] MEDS ORDERED: DEXAMETHASONE 10 MG/ML VIAL PO STA (12:11)
[2019-11-11] MEDS ORDERED: CHERRY SYRUP 10 ML UDC PO ONE (12:11)
== END 2019-11-11 12:23 | disposition home or self-care (01) ==
LOC: ED 10:39
DX: J02.0 Streptococcal pharyngitis (principal); F17.200 Nicotine dependence, unspecified, uncomplicated
CPT/HCPCS: 99282; 99283; A9270

== ENCOUNTER 2020-04-29 08:06 | Emergency (ER) | payer MEDICAID ==
--- NOTE | 2020-04-29 08:12 | ED Physician Documentation ---
PD HPI BACK PAIN - Stated complaint Stated Complaint: BACK PX - LOWER - History obtained from History obtained from: Patient - History of Present Illness Timing - onset: How many days ago (3) Timing - duration: Days (3) Timing - details: Intermittant (mainly at night, with difficulty sleeping.) Location: Lower, Right (more to the right.), Left Quality: Pain, Aching Associated symptoms: No: Fever, Weakness, Numbness Worsened by: Movement (sometimes changing position helps pain. Not hurting during the day.), Other (no radiation to abd nor legs) Contributing factors: No: Lifting, Twisting, Trauma Similar symptoms before: Has not had sx before Recently seen: Not recently seen Review of Systems Constitutional: denies: Fever, Chills, Fatigue Nose: denies: Rhinorrhea / runny nose, Congestion Throat: denies: Sore throat Respiratory: denies: Cough GI: denies: Abdominal Pain, Nausea, Vomiting, Diarrhea : denies: Dysuria, Frequency, Incontinent, Discharge Skin: denies: Rash, Lesions Neurologic: denies: Focal weakness, Numbness PD PAST MEDICAL HISTORY - Past Medical History Cardiovascular: None Respiratory: None Neuro: None Endocrine/Autoimmune: None GI: None CARE CONNECTOR: None : None HEENT: None Psych: Depression Musculoskeletal: None Derm: None - Past Surgical History Past Surgical History: Yes Ortho: Shoulder arthroplasty /CARE CONNECTOR: section - Present Medications Home Medications: Ambulatory Orders Medication Instructions Recorded Confirmed Benzonatate 200 mg PO TID PRN #20 capsule 10/27/19 Amoxicillin 500 mg PO BID #20 capsule 11/11/19 Hydrocodone/Acetaminophen [[place] 1 each PO Q6H PRN #20 tablet 04/29/20 5-325 Tablet] Naproxen 500 mg PO BID #20 tablet 04/29/20 Tizanidine HCl 4 mg PO TID PRN #25 capsule 04/29/20 dexAMETHasone [Decadron] 4 mg PO DAILY #5 tablet 04/29/20 - Allergies Allergies/Adverse Reactions: Allergies Allergy/AdvReac Type Severity Reaction Status Date / Time No Known Drug Allergies Allergy Verified 04/29/20 08:24 - Social History Does the pt smoke?: Yes Smoking Status: Current every day smoker Does the pt drink ETOH?: Yes Does the pt have substance abuse?: No - Immunizations Immunizations are current?: Yes Immunizations: TDAP current <10years - POLST Patient has POLST: No Results - Vitals Vitals: Vital Signs - 24 hr 04/29/20 04/29/20 08:15 09:20 Temperature 36.7 C Heart Rate 71 66 Respiratory 20 16 Rate Blood Pressure 205/107 H 145/101 H O2 Saturation 100 95 Oxygen O2 Source Room air - Labs Labs: Laboratory Tests 04/29/20 04/29/20 04/29/20 08:20 08:20 08:35 WBC 11.4 H RBC 5.16 Hgb 15.2 Hct 42.7 MCV 82.8 MCH 29.5 MCHC 35.6 RDW 12.3 Plt Count 267 MPV 9.2 Neut # (Auto) 8.9 H Lymph # (Auto) 2.0 [place] # (Auto) 0.4 Eos # (Auto) 0.1 Baso # (Auto) 0.1 Absolute Nucleated RBC 0.00 Nucleated RBC % 0.0 Sodium 137 Potassium 4.1 Chloride 101 Carbon Dioxide 25 Anion Gap 11.0 BUN 14 Creatinine 0.5 Estimated GFR (MDRD) 144 Glucose 134 H Calcium 10.0 Total Bilirubin 0.9 AST 24 ALT 32 Alkaline Phosphatase 78 Total Protein 8.2 Albumin 5.1 Globulin 3.1 Albumin/Globulin Ratio 1.6 Lipase 27 Urine Color YELLOW Urine Clarity CLEAR Urine pH 7.0 Ur Specific [place] 1.010 Urine Protein NEGATIVE Urine Glucose (UA) NEGATIVE Urine Ketones NEGATIVE Urine Occult Blood SMALL H Urine Nitrite NEGATIVE Urine Bilirubin NEGATIVE Urine Urobilinogen 0.2 (NORMAL) Ur Leukocyte Esterase NEGATIVE Urine RBC 0-5 Urine WBC 0-3 Ur Squamous Epith Cells FEW Squamous Urine Bacteria None Seen Ur Microscopic Review INDICATED Urine Culture Comments NOT INDICATED Urine HCG, Qual NEGATIVE - Rads (name of study) KUB CT Radiology: Prelim report reviewed (no acute process), See rad report PD MEDICAL DECISION MAKING - ED course Complexity details: reviewed results, re-evaluated patient (Feeling improved with medications. Just slightly uncomfortable at this time. No acute process seen on urine labs or CT scan. Her blood pressure is improved as the pain improved. We will presume musculoskeletal pain at this time.), considered differential (She appears very uncomfortable and is slightly diaphoretic. Consider more significant process such as kidney stone etc. We will also give IV dose of Toradol and morphine to help with the pain.), d/w patient Departure - Departure Disposition: 01 Home, Self Care Clinical Impression: Low back pain Condition: Stable Record reviewed to determine appropriate education?: Yes Instructions: ED Low Back Pain Injury Follow-Up: Geri Scherer ARNP, PERSONAL CARER-C [Primary Care Provider] - Prescriptions: dexAMETHasone [Decadron] 4 mg PO DAILY #5 tablet Naproxen 500 mg PO BID #20 tablet Hydrocodone/Acetaminophen [[place] 5-325 Tablet] 1 each PO Q6H PRN #20 tablet PRN Reason: Pain Tizanidine HCl 4 mg PO TID PRN #25 capsule PRN Reason: Spasms Comments: Your urine test and blood count and kidney function are normal. The CT scan did not show an obvious cause for the back pain which would exclude kidney stones, masses, bleeding, fractures or significant bony abnormalities. What would not show on this would be muscular pain so I presume its that at this time. Recheck if new symptoms develop such as abdominal pain, fevers, skin rash, numbness or weakness or other concerns. Otherwise gentle range of motion and heat for the low back. Anti-inflammatories of naproxen and Decadron as prescribed. Add tizanidine for stiffness and spasms and particularly before bedtime. To that add Tylenol or hydrocodone if needed for pain. Recheck if not improved well over the next several days and resolved within a week.
[2020-04-29] MEDS ORDERED: KETOROLAC 30 MG/ML VIAL IVP STA (08:21)
[2020-04-29] MEDS ORDERED: MORPHINE 2 MG/ML CARPUJECT IVP STA (08:22)
[2020-04-29 08:42] LABS: BILIRUBIN,URINE NEGATIVE (NEGATIVE); GLUCOSE, URINE (UA) NEGATIVE (NEGATIVE); KETONES,URINE (UA) NEGATIVE (NEGATIVE); LEUKOCYTE ESTERASE, URINE NEGATIVE (NEGATIVE); NITRITE,URINE NEGATIVE (NEGATIVE); OCCULT BLOOD,URINE SMALL (NEGATIVE); PROTEIN,URINE NEGATIVE (NEGATIVE); UROBILINOGEN,URINE 0.2 (NORMAL) E.U./dL (NORMAL)
[2020-04-29 08:47] LABS: BASOPHILS # (AUTO) 0.1 10^3/uL (0.0-0.1); BASOPHILS % (AUTO) 0.4 %; EOSINOPHILS # (AUTO) 0.1 10^3/uL (0.0-0.7); EOSINOPHILS % (AUTO) 0.7 %; HGB - HEMOGLOBIN 15.2 g/dL (12.0-16.0); LYMPHOCYTES % (AUTO) 17.5 %; MEAN CORPUSCULAR HEMOGLOBIN 29.5 pg (27.0-31.0); MEAN CORPUSCULAR HGB CONC 35.6 g/dL (32.0-36.0); MEAN CORPUSCULAR VOLUME 82.8 fL (81.0-99.0); MEAN PLATELET VOLUME 9.2 fL (7.9-10.8); MONOCYTES # (AUTO) 0.4 10^3/uL (0.0-1.0); MONOCYTES % (AUTO) 3.2 %; NEUTROPHILS # (AUTO) 8.9 10^3/uL (1.5-6.6); NEUTROPHILS % (AUTO) 77.7 %; PLT - PLATELET COUNT 267 10^3/uL (130-450); RED BLOOD COUNT 5.16 10^6/uL (4.20-5.40); RED CELL DISTRIBUTION WIDTH 12.3 % (12.0-15.0); WHITE BLOOD COUNT 11.4 x10^3/uL (4.8-10.8)
[2020-04-29 08:50] LABS: CLARITY,URINE CLEAR (CLEAR); HCG UR QUAL NEGATIVE
[2020-04-29 09:01] LABS: ALBUMIN 5.1 g/dL (3.2-5.5); ALBUMIN/GLOBULIN RATIO 1.6 (1.0-2.2); BILIRUBIN,TOTAL 0.9 mg/dL (0.2-1.0); CREATININE 0.5 mg/dL (0.4-1.0); TOTAL PROTEIN 8.2 g/dL (6.7-8.2)
[2020-04-29 09:05] LABS: BACTERIA,URINE None Seen /HPF (None Seen); RBC,URINE 0-5 /HPF (0-5); SQUAMOUS EPITHELIAL CELL,UR FEW Squamous (<= Few)
--- NOTE | 2020-04-29 09:29 | CT Report ---
PROCEDURE: Abdomen/Pelvis WO INDICATIONS: back/flank pain overnight TECHNIQUE: Noncontrast 5 mm thick sections acquired from the diaphragms to the symphysis. 5 mm coronal and sagi ttal reformats were then performed. For radiation dose reduction, the following was used: automated exposure control, adjustment of mA and/or kV according to patient size. COMPARISON: None. FINDINGS: Image quality: Excellent. ABDOMEN: Lung bases: Lung bases are clear. Heart size is normal. Solid organs: Liver and spleen are normal in size. Gallbladder is normal Pancreas is normal in con tours. No adrenal nodules. Kidneys are normal in size, without hydronephrosis or nephrolithiasis. Peritoneum and bowel: Unenhanced bowel loops demonstrate normal wall thickness and caliber. No free fluid or air. Appendix is normal. Nodes and vessels: No retroperitoneal or mesenteric adenopathy by size criteria. Aorta and inferior vena cava are normal in caliber. Miscellaneous: Small fat-containing umbilical hernia. PELVIS: Genitourinary: Bladder is decompressed, imaging which limits diagnostic sensitivity of this study. N o gross abnormality identified in the urinary bladder. Miscellaneous: No inguinal hernias or adenopathy. Bones: No suspicious bony lesions. No vertebral body compression fractures. IMPRESSION: 1. No renal stone or hydronephrosis. 2. The appendix is normal. 3. No free fluid or free air. 4. No dilated loops of bowel. Reviewed by: Margaret Shaikh MD, PhD on 04/29/2020 9:27 AM PDT Approved by: Margaret Shaikh MD, PhD on 04/29/2020 9:27 AM PDT Station ID: [id number]
[2020-04-29 10:07] VITALS: BP 142/85
== END 2020-04-29 10:11 | disposition home or self-care (01) ==
LOC: ED 08:06
DX: M54.5 Low back pain (principal); F17.200 Nicotine dependence, unspecified, uncomplicated
CPT/HCPCS: 36415; 74176; 80053; 81001; 81003; 81025; 83690; 85025; 87086; 96374; 99284

== ENCOUNTER 2020-07-01 12:00 | Emergency (ER) | payer OTHER, MEDICAID ==
[2020-07-01 12:20] LABS: BILIRUBIN,URINE NEGATIVE (NEGATIVE); GLUCOSE, URINE (UA) NEGATIVE (NEGATIVE); KETONES,URINE (UA) NEGATIVE (NEGATIVE); LEUKOCYTE ESTERASE, URINE NEGATIVE (NEGATIVE); MUDS CUTOFF CONCENTRATIONS CUTOFF CONC BELOW:; NITRITE,URINE NEGATIVE (NEGATIVE); OCCULT BLOOD,URINE SMALL (NEGATIVE); PROTEIN,URINE TRACE mg/dL (NEGATIVE); UROBILINOGEN,URINE 0.2 (NORMAL) E.U./dL (NORMAL)
[2020-07-01 12:22] LABS: CLARITY,URINE CLEAR (CLEAR); HCG UR QUAL NEGATIVE
[2020-07-01 12:25] LABS: BASOPHILS % (AUTO) 0.3 %; EOSINOPHILS # (AUTO) 0.1 10^3/uL (0.0-0.7); EOSINOPHILS % (AUTO) 0.6 %; HGB - HEMOGLOBIN 13.7 g/dL (12.0-16.0); LYMPHOCYTES # (AUTO) 2.9 10^3/uL (1.5-3.5); LYMPHOCYTES % (AUTO) 29.1 %; MEAN CORPUSCULAR HEMOGLOBIN 29.6 pg (27.0-31.0); MEAN CORPUSCULAR HGB CONC 35.2 g/dL (32.0-36.0); MEAN PLATELET VOLUME 8.7 fL (7.9-10.8); MONOCYTES # (AUTO) 0.6 10^3/uL (0.0-1.0); MONOCYTES % (AUTO) 5.8 %; NEUTROPHILS # (AUTO) 6.3 10^3/uL (1.5-6.6); NEUTROPHILS % (AUTO) 63.7 %; PLT - PLATELET COUNT 290 10^3/uL (130-450); RED BLOOD COUNT 4.63 10^6/uL (4.20-5.40); RED CELL DISTRIBUTION WIDTH 12.7 % (12.0-15.0); WHITE BLOOD COUNT 9.9 x10^3/uL (4.8-10.8)
[2020-07-01 12:28] LABS: BACTERIA,URINE Rare /HPF (None Seen); RBC,URINE 0-5 /HPF (0-5); SQUAMOUS EPITHELIAL CELL,UR FEW Squamous (<= Few)
[2020-07-01 12:31] LABS: AMPHETAMINE SCREEN,URINE NEGATIVE (NEGATIVE); BENZODIAZEPINES SCREEN, URINE NEGATIVE (NEGATIVE); COCAINE SCREEN URINE NEGATIVE (NEGATIVE); METHADONE SCREEN, URINE NEGATIVE (NEGATIVE); METHAMPHETAMINES SCREEN, URINE NEGATIVE (NEGATIVE); OPIATE SCREEN, URINE NEGATIVE (NEGATIVE); OXYCODONE SCREEN, URINE NEGATIVE (NEGATIVE); PROPOXYPHENE SCREEN, URINE NEGATIVE (NEGATIVE); TRICYCLIC ANTIDEPRESSANT,URINE NEGATIVE (NEGATIVE)
--- NOTE | 2020-07-01 12:38 | ED Physician Documentation ---
PD HPI MHE - Stated complaint Stated Complaint: MHE - Chief complaint Chief Complaint: MHE - History obtained from History obtained from: Patient, Friend - History of Present Illness Primary symptom: Suicidal ideation Pain level max: 0 Pain level now: 0 Contributing factors: Substance abuse - drugs - Additional information Additional information: Patient is a 29-year-old female who presents to the emergency department stating she has increasing suicidal thoughts at home. She does not have a counselor or a therapist. Nothing makes it better or worse. She does have a young daughter at home. She states that she has tried to hurt herself in the past, but does not want to hurt herself. Patient is unsure if she would like inpatient treatment or not. She has a friend with her. She states that she recently stopped abusing fentanyl. She does smoke and drink. She states that she occasionally uses marijuana as well. 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 : None HEENT: None Psych: Depression Musculoskeletal: None Derm: None - Past Surgical History Past Surgical History: Yes Ortho: Shoulder arthroplasty /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 - Present Medications Home Medications: Ambulatory Orders Medication Instructions Recorded Confirmed Benzonatate 200 mg PO TID PRN #20 capsule 10/27/19 Amoxicillin 500 mg PO BID #20 capsule 11/11/19 Hydrocodone/Acetaminophen [[place] 1 each PO Q6H PRN #20 tablet 04/29/20 5-325 Tablet] Naproxen 500 mg PO BID #20 tablet 04/29/20 Tizanidine HCl 4 mg PO TID PRN #25 capsule 04/29/20 dexAMETHasone [Decadron] 4 mg PO DAILY #5 tablet 04/29/20 - Allergies Allergies/Adverse Reactions: Allergies Allergy/AdvReac Type Severity Reaction Status Date / Time No Known Drug Allergies Allergy Verified 07/01/20 12:09 - Social History Does the pt smoke?: Yes Smoking Status: Current every day smoker Does the pt drink ETOH?: Yes Does the pt have substance abuse?: No - Immunizations Immunizations are current?: Yes Immunizations: TDAP current <10years - POLST Patient has POLST: No PD ED PE NORMAL - Vitals Vital signs reviewed: Yes - General General: Alert and oriented X 3, No acute distress - HEENT HEENT: PERRL, Moist mucous membranes - Neck Neck: Supple, no meningeal sign - Cardiac Cardiac: RRR - Respiratory Respiratory: No respiratory distress, Clear bilaterally - Abdomen Abdomen: Soft, Non tender, Non distended - Derm Derm: Warm and dry - Extremities Extremities: No edema - Neuro Neuro: Alert and oriented X 3 - Psych Psych: Normal mood, Normal affect Results - Vitals Vitals: Vital Signs - 24 hr 07/01/20 07/01/20 07/01/20 12:04 12:13 14:11 Temperature 37 C Heart Rate 88 88 90 Respiratory 20 20 18 Rate Blood Pressure 184/128 H 184/100 H 175/110 H O2 Saturation 100 100 100 Oxygen O2 Source Room air - Labs Labs: Laboratory Tests 07/01/20 07/01/20 07/01/20 12:15 12:20 12:20 WBC 9.9 RBC 4.63 Hgb 13.7 Hct 38.9 MCV 84.0 MCH 29.6 MCHC 35.2 RDW 12.7 Plt Count 290 MPV 8.7 Neut # (Auto) 6.3 Lymph # (Auto) 2.9 [place] # (Auto) 0.6 Eos # (Auto) 0.1 Baso # (Auto) 0.0 Absolute Nucleated RBC 0.00 Nucleated RBC % 0.0 Sodium 139 Potassium 3.3 L Chloride 100 L Carbon Dioxide 27 Anion Gap 12.0 BUN 12 Creatinine 0.5 Estimated GFR (MDRD) 144 Glucose 121 H Calcium 9.7 Total Bilirubin 0.5 AST 19 ALT 22 Alkaline Phosphatase 77 Total Protein 7.8 Albumin 4.7 Globulin 3.1 Albumin/Globulin Ratio 1.5 Lipase 27 TSH Urine Color YELLOW Urine Clarity CLEAR Urine pH 7.0 Ur Specific [place] 1.020 Urine Protein TRACE Urine Glucose (UA) NEGATIVE Urine Ketones NEGATIVE Urine Occult Blood SMALL H Urine Nitrite NEGATIVE Urine Bilirubin NEGATIVE Urine Urobilinogen 0.2 (NORMAL) Ur Leukocyte Esterase NEGATIVE Urine RBC 0-5 Urine WBC 0-3 Ur Squamous Epith Cells FEW Squamous Urine Bacteria Rare Ur Microscopic Review INDICATED Urine Culture Comments NOT INDICATED Urine HCG, Qual NEGATIVE Salicylates < 6.0 Urine Opiates Screen NEGATIVE Ur Oxycodone Screen NEGATIVE Urine Methadone Screen NEGATIVE Ur Propoxyphene Screen NEGATIVE Acetaminophen < 10 L Ur Barbiturates Screen NEGATIVE Ur Tricyclics Screen NEGATIVE Ur Phencyclidine Scrn NEGATIVE Ur Amphetamine Screen NEGATIVE U Methamphetamines Scrn NEGATIVE U Benzodiazepines Scrn NEGATIVE Urine Cocaine Screen NEGATIVE U Cannabinoids Screen NEGATIVE Ethyl Alcohol 34.2 07/01/20 12:20 WBC RBC Hgb Hct MCV MCH MCHC RDW Plt Count MPV Neut # (Auto) Lymph # (Auto) [place] # (Auto) Eos # (Auto) Baso # (Auto) Absolute Nucleated RBC Nucleated RBC % Sodium Potassium Chloride Carbon Dioxide Anion Gap BUN Creatinine Estimated GFR (MDRD) Glucose Calcium Total Bilirubin AST ALT Alkaline Phosphatase Total Protein Albumin Globulin Albumin/Globulin Ratio Lipase TSH 0.89 Urine Color Urine Clarity Urine pH Ur Specific [place] Urine Protein Urine Glucose (UA) Urine Ketones Urine Occult Blood Urine Nitrite Urine Bilirubin Urine Urobilinogen Ur Leukocyte Esterase Urine RBC Urine WBC Ur Squamous Epith Cells Urine Bacteria Ur Microscopic Review Urine Culture Comments Urine HCG, Qual Salicylates Urine Opiates Screen Ur Oxycodone Screen Urine Methadone Screen Ur Propoxyphene Screen Acetaminophen Ur Barbiturates Screen Ur Tricyclics Screen Ur Phencyclidine Scrn Ur Amphetamine Screen U Methamphetamines Scrn U Benzodiazepines Scrn Urine Cocaine Screen U Cannabinoids Screen Ethyl Alcohol PD MEDICAL DECISION MAKING - ED course Complexity details: reviewed results, re-evaluated patient, considered differential, d/w patient, d/w recruitment consultant ED course: Patient is medically clear for psychiatric care. Social work was consulted. She would like to go somewhere voluntarily, but the facility requires a negative COVID test. This will not be back until tomorrow. Therefore she will be held into the emergency department that test is resulted. She will then be transferred for psychiatric care. Patient signed out to the [facility] emergency department physician. This document was made in part using voice recognition software. While efforts are made to proofread this document, sound alike and grammatical errors may occu r. Departure - Departure Clinical Impression: Substance abuse, Suicidal ideation Depression Qualifiers: Depression Type: unspecified Qualified Code(s): F32.9 - Major depressive disorder, single episode, unspecified Condition: Stable
[2020-07-01 12:39] LABS: ACETAMINOPHEN < 10 ug/mL (10-30); ALBUMIN 4.7 g/dL (3.2-5.5); ALBUMIN/GLOBULIN RATIO 1.5 (1.0-2.2); ALKALINE PHOSPHATASE 77 IU/L (42-121); ALT ALANINE AMINOTRANSFERASE 22 IU/L (10-60); AST ASPARTATE AMINOTRANSFERASE 19 IU/L (10-42); BILIRUBIN,TOTAL 0.5 mg/dL (0.2-1.0); BUN - BLOOD UREA NITROGEN 12 mg/dL (6-20); CALCIUM 9.7 mg/dL (8.5-10.3); CARBON DIOXIDE - CO2 27 mmol/L (21-32); CHLORIDE 100 mmol/L (101-111); CREATININE 0.5 mg/dL (0.4-1.0); GLUCOSE 121 mg/dL (70-100); LIPASE 27 U/L (22-51); SALICYLATE < 6.0 mg/dL; SODIUM 139 mmol/L (135-145); TOTAL PROTEIN 7.8 g/dL (6.7-8.2)
[2020-07-01] MEDS ORDERED: CYCLOBENZAPRINE 10 MG TABLET PO STA (19:54)
[2020-07-02] MEDS ORDERED: OLANZapine ODT 5 MG TABLET TL ONE (08:41)
[2020-07-02 12:06] VITALS: BP 160/80
[2020-07-02] MEDS ORDERED: LORazepam 1 MG TABLET PO STA (12:54)
== END 2020-07-02 13:55 ==
LOC: ED 12:00
DX: R45.851 Suicidal ideations (principal); F11.10 Opioid abuse, uncomplicated; F32.9 Major depressive disorder, single episode, unspecified; Z20.828 Contact with and (suspected) exposure to other viral communicable diseases
CPT/HCPCS: 36415; 80320; 80329; 81001; 81025; 83690; 87635; 99283; 99285; A9270; J8499; 80053; 80306; 80307; 81003; 84443; 85025; 87086

== ENCOUNTER 2020-07-16 10:25 | Emergency (ER) | payer OTHER, MEDICAID ==
--- NOTE | 2020-07-16 13:08 | ED Physician Documentation ---
History of Present Illness - Stated complaint Stated Complaint: ANXIETY - Chief complaint Chief Complaint: General - History obtained from History obtained from: Patient - Additonal information Additional information: 29 yo F w/ pmh of anxiety and depression presents w/ increasing anxiety. Pt states she recently was inpatient for about a week for depression and suicidal thoughts. She has not been successful in making a follow up appt w/ PCP or counselor since she was discharged--states she called multiple times yesterday and never got through to either place. Reports generally feeling overwhelmed with life including finding childcare for her daughter, working, keeping up with regular duties of housework. No specific events that triggered her this week. Denies suicidal thoughts or attempts and states "I am not in the dark place I was when I went to the inpatient facility, but I don't want to get there again." Is on an antidepressant though she is not sure which one. Not on anxiolytic thou gh has been on xanax in the distant past. Trying deep breathing, walking, and other supportive measures w/o relief. Pt requesting assistance scheduling clinic appointment. Review of Systems Constitutional: reports: Reviewed and negative Throat: reports: Reviewed and negative Cardiac: reports: Reviewed and negative Respiratory: reports: Reviewed and negative GI: reports: Reviewed and negative Skin: reports: Reviewed and negative Musculoskeletal: reports: Reviewed and negative Neurologic: reports: Reviewed and negative Psychiatric: reports: Anxiety, Insomnia. 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: section - Present Medications Home Medications: Ambulatory Orders Medication Instructions Recorded Confirmed Benzonatate 200 mg PO TID PRN #20 capsule 10/27/19 Amoxicillin 500 mg PO BID #20 capsule 11/11/19 Hydrocodone/Acetaminophen [[place] 1 each PO Q6H PRN #20 tablet 04/29/20 5-325 Tablet] Naproxen 500 mg PO BID #20 tablet 04/29/20 Tizanidine HCl 4 mg PO TID PRN #25 capsule 04/29/20 dexAMETHasone [Decadron] 4 mg PO DAILY #5 tablet 04/29/20 Alprazolam [Xanax] 0.25 mg PO Q8H PRN #15 tablet 07/16/20 - Allergies Allergies/Adverse Reactions: Allergies Allergy/AdvReac Type Severity Reaction Status Date / Time No Known Drug Allergies Allergy Verified 07/16/20 10:31 - Social History Does the pt smoke?: Yes Smoking Status: Current every day smoker Does the pt drink ETOH?: Yes Does the pt have substance abuse?: No - Immunizations Immunizations are current?: Yes Immunizations: TDAP current <10years - POLST Patient has POLST: No PD ED PE NORMAL - Vitals Vital signs reviewed: Yes - General General: Alert and oriented X 3, No acute distress, Well developed/nourished - HEENT HEENT: Atraumatic, Moist mucous membranes - Cardiac Cardiac: RRR, No murmur, No gallop, No rub - Respiratory Respiratory: No respiratory distress, Clear bilaterally - Abdomen Abdomen: Normal bowel sounds, Soft, Non tender, Non distended - Derm Derm: Normal color, Warm and dry, No rash - Neuro Neuro: Alert and oriented X 3 Eye Opening: Spontaneous Motor: Obeys Commands Verbal: Oriented GCS Score: 15 Results - Vitals Vitals: Vital Signs - 24 hr 07/16/20 07/16/20 10:31 13:12 Temperature 37 C 36.4 C L Heart Rate 80 78 Respiratory 20 18 Rate Blood Pressure 154/87 H 147/74 H O2 Saturation 100 99 Oxygen O2 Source Room air PD MEDICAL DECISION MAKING - ED course Complexity details: considered differential, d/w patient ED course: Pt presented feeling anxious and overwhelmed. Recently discharged from an inpatient facility. Pt denies suicidal thoughts but requested help making an appt w/ her clinic which I did, and will give a short-term prescription for xanax which pt has used successfully in the past as needed. Discussed non- pharmacologic supportive measures as well. Pt to schedule follow up with her counselor this week as well. She is to return to the ER or call crisis resources if she has thoughts of hurting herself. Departure - Departure Disposition: 01 Home, Self Care Clinical Impression: Anxiety Condition: Good Instructions: ED Stress React, ED Panic Attack Prescriptions: Alprazolam [Xanax] 0.25 mg PO Q8H PRN #15 tablet PRN Reason: Anxiety Comments: Please keep the appointment with [facility] in [place] on Wednesday at 11am. Please call [phone] if you are unable to keep that appointment. I will prescribe a short-term prescription for xanax to help with anxiety. Please return to the ER or call crisis resources at anytime if you are feeling suicidal. Discharge Date/Time: 07/16/20 13:35
[2020-07-16 13:12] VITALS: BP 147/74
== END 2020-07-16 13:35 | disposition home or self-care (01) ==
LOC: ED 10:25
DX: F41.1 Generalized anxiety disorder (principal); F32.9 Major depressive disorder, single episode, unspecified; F17.200 Nicotine dependence, unspecified, uncomplicated
CPT/HCPCS: 99282; 99283

== ENCOUNTER 2020-11-02 23:15 | Emergency (ER) | payer OTHER, MEDICAID ==
[2020-11-02 23:41] LABS: RAPID STREP SCREEN POSITIVE (Negative)
[2020-11-02] MEDS ORDERED: KETOROLAC 60 MG/2 ML VIAL IM STA (23:57)
[2020-11-03] MEDS ORDERED: AMOXICILLIN 250 MG CAPSULE PO STA (00:03)
[2020-11-03 00:12] LABS: BILIRUBIN,URINE NEGATIVE (NEGATIVE); GLUCOSE, URINE (UA) NEGATIVE (NEGATIVE); KETONES,URINE (UA) NEGATIVE (NEGATIVE); LEUKOCYTE ESTERASE, URINE NEGATIVE (NEGATIVE); NITRITE,URINE NEGATIVE (NEGATIVE); OCCULT BLOOD,URINE TRACE-INTA (NEGATIVE); PH,URINE 5.5 PH (5.0-7.5); PROTEIN,URINE NEGATIVE (NEGATIVE); UROBILINOGEN,URINE 0.2 (NORMAL) E.U./dL (NORMAL)
[2020-11-03 00:13] LABS: CLARITY,URINE CLEAR (CLEAR)
--- NOTE | 2020-11-03 00:26 | ED Physician Documentation ---
History of Present Illness - Stated complaint Stated Complaint: SORE THROAT - Chief complaint Chief Complaint: Back Pain - History obtained from History obtained from: Patient - Additonal information Additional information: Patient comes emergency department chief complaint of low back pain and sore throat. She states she has had the sore throat for about 6 days and the low back pain for the last several days. She has a history of frequent bouts of strep throat, and states this feels similar. She has noticed that her lymph nodes seem swollen and it hurts to swallow. No fevers or chills. The patient has had a little bit of a cough, but mainly because her throat is irritated. She denies congestion or rhinorrhea. She states that she has not had any abdominal pain or nausea. She does complain of low back discomfort which is a pressure sensation that sometimes escalates to a painful discomfort. 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 She states she has not really Had a specific injury, and does not recall a particularly strenuous job that she had to do. She states the discomfort is seem to come on on its own. The patient is obese and has had back problems several months ago, but those seem to resolve. The patient denies any numbness or tingling in her lower extremities has had a sharp shooting pain in her left lateral hip area. No dysuria or gross hematuria. No frequency. The patient has noticed that her urine seems cloudy and a bit foul-smelling. The patient states that the back discomfort is not worse with any particular movement or position. No other complaints at this time. Review of Systems Ten Systems: 10 systems reviewed and negative Constitutional: reports: Reviewed and negative. denies: Fever, Chills Eyes: reports: Reviewed and negative Ears: reports: Reviewed and negative Nose: reports: Reviewed and negative. denies: Rhinorrhea / runny nose, Congestion Throat: reports: Sore throat Cardiac: reports: Reviewed and negative Respiratory: reports: Cough. denies: Dyspnea GI: reports: Reviewed and negative. denies: Abdominal Pain, Nausea : reports: Reviewed and negative. 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: None : None HEENT: None Psych: Depression Musculoskeletal: None Derm: None - Past Surgical History Past Surgical History: Yes Ortho: Shoulder arthroplasty /POLISHER EYEGLASS FRAMES: section - Present Medications Home Medications: Ambulatory Orders Medication Instructions Recorded Confirmed Lisinopril [Zestril] 20 mg PO DAILY PM 11/02/20 11/02/20 amLODIPine [Norvasc] 5 mg PO DAILY 11/02/20 11/02/20 buPROPion [Wellbutrin Sr] 150 mg PO DAILY 11/02/20 11/02/20 hydrOXYzine HCL [Hydroxyzine HCl] 25 mg PO DAILY 11/02/20 11/02/20 Amoxicillin 500 mg PO TID 7 Days #21 capsule 11/03/20 traMADol [Ultram] 50 mg PO BID PRN #6 tablet 11/03/20 - Allergies Allergies/Adverse Reactions: Allergies Allergy/AdvReac Type Severity Reaction Status Date / Time No Known Drug Allergies Allergy Verified 11/02/20 23:18 - Social History Does the pt smoke?: Yes Smoking Status: Current every day smoker Does the pt drink ETOH?: Yes Does the pt have substance abuse?: No - Immunizations Immunizations are current?: Yes Immunizations: TDAP current <10years - POLST Patient has POLST: No PD ED PE NORMAL - Vitals Vital signs reviewed: Yes - General General: Alert and oriented X 3, No acute distress, Other (Obese female, no apparent distress.) - HEENT HEENT: Atraumatic, PERRL, EOMI, Moist mucous membranes, Pharynx benign - Neck Neck: Supple, no meningeal sign, Other (Mild anterior lymphadenopathy with mild tenderness.) - Cardiac Cardiac: RRR, No murmur, Strong equal pulses - Respiratory Respiratory: No respiratory distress, Clear bilaterally - Abdomen Abdomen: Soft, Non tender, Non distended - Back Back: No CVA TTP, No spinal TTP, Other (Minimal tenderness across low back musculature. 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, No motor deficit, No sensory deficit, Normal speech - Psych Psych: Normal mood, Normal affect Results - Vitals Vitals: Vital Signs - 24 hr 11/02/20 11/03/20 23:19 00:40 Temperature 36.5 C 36.5 C Heart Rate 97 91 Respiratory 16 16 Rate Blood Pressure 139/67 H 141/68 H O2 Saturation 100 98 Oxygen O2 Source Room air - Labs Labs: Laboratory Tests 11/02/20 11/03/20 23:35 00:08 Urine Color YELLOW Urine Clarity CLEAR Urine pH 5.5 Ur Specific [place] 1.010 Urine Protein NEGATIVE Urine Glucose (UA) NEGATIVE Urine Ketones NEGATIVE Urine Occult Blood TRACE-INTA Urine Nitrite NEGATIVE Urine Bilirubin NEGATIVE Urine Urobilinogen 0.2 (NORMAL) Ur Leukocyte Esterase NEGATIVE Ur Microscopic Review NOT INDICATED Urine Culture Comments NOT INDICATED Group A Strep Rapid POSITIVE H PD MEDICAL DECISION MAKING - ED course Complexity details: reviewed results, re-evaluated patient, considered differ ential, d/w patient ED course: Due to the patient's history of strep pharyngitis, a rapid strep was obtained and was found to be positive. She was started on amoxicillin for this. Her urinalysis was unremarkable. I discussed with the patient that her low back discomfort is most likely due to mild strain from daily activities, and will pass on its own. I have advised the patient to take anti-inflammatories in her usual muscle relaxants, as needed. I have given her prescription for 6 tablets of tramadol, which she may use at her discretion for her low back discomfort. We have discussed the need to follow-up in primary care. We have discussed the usual indications for return. Departure - Departure Disposition: 01 Home, Self Care Clinical Impression: Strep pharyngitis Back pain Qualifiers: Back pain location: low back pain Chronicity: acute Back pain laterality: bilateral Sciatica presence: without sciatica Qualified Code(s): M54.5 - Low back pain Condition: Stable Instructions: ED Back Care Tips, ED Exercises Lumbar Muscles, ED Neck Back Pain General, ED Strep Pharyngitis Conf Prescriptions: Amoxicillin 500 mg PO TID 7 Days #21 capsule traMADol [Ultram] 50 mg PO BID PRN #6 tablet PRN Reason: Pain Comments: Your urinalysis is completely normalno infection, and no blood to indicate a kidney stone. Your back discomfort seems most consistent with a structural origin, As in coming from the bonemuscle connections. Sometimes this can be caused by normal activities or stresses to the back that are not attention- getting, but because some extra wear on the back. You can help this by taking anti-inflammatories and stretching. You may also take your muscle relaxers. If these do not seem to be helping then you may take the medication prescribed to help ease the discomfort over the next day or 2. If after the next week, you are still experiencing the same symptoms in the back, you will need to follow-up with your primary care physician to discuss whether an MRI is appropriate at this time. Your strep screen was positive, and you have been started on antibiotics for this. Please take the antibiotics every day until the course is finished. Discharge Date/Time: 11/03/20 00:41
[2020-11-03 00:41] VITALS: BP 141/68
--- OUTSIDE RECORDS SUMMARY | 2020-11-06 01:54 | EXTERNAL MEDICAL SUMMARY RPT | Continuity of Care Document ---
:1990 Demographics Phone Unavailable Preferred Language Greenlandic Marital Status Unknown Alevism Affiliation Unknown Race Unknown Ethnic Group Unknown Author Organization [place] Address [address] [phone] Phone Care Team Providers Name Role Phone PYTHON ENGINEER Unavailable Unavailable Allergies date description facility [facility]NOWN [facility] KET[facility] OMEPRAZOLE MAGNESIUM [facility] Med ical Center ARIPIPRAZOLE [facility] No Known Drug Allergies [facility] Medications date description facility 2020-08-23 00:00:00 null [facility] Prim [facility] 2020-08-23 00:00:00 null [facility] Prim [facility] 2020-08-23 00:00:00 CITALOPRAM HYDROBROMIDE [facility] 2020-08-23 00:00:00 CITALOPRAM [facility] 2020-09-13 [facility]:00 [facility] 2020-09-13 00:00:00 [facility] 2020-09-13 00:00:00 BUPROPION HCL [facility] Prim [facility] 2020-09-13 00:00:00 BUPROPION HCL [facility] Prim [facility] Results test status date ordered by attending specimen earline e null F 2020-11-02 [email or web address] Ninfa Taveras 23:39:00 23:35:00 facility observation status value reference units lab abnor mal line range code notes [facility] F POSITIVE Negative A Positive [facility] f or Group A Strep Antigen. A positive result may occu r in the absence of viabl e bacteria . test status date ordered by attending specimen earline e null F 2020-11-03 [email or web address] Ninfa Taveras 00:08:00 00:08:00 null F 2020-11-03 DONOVAN.01 Ninfa Taveras 00:08:00 00:08:00 null F 2020-11-03 DONOVAN.01 Ninfa Taveras 00:08:00 00:08:00 null F 2020-11-03 DONOVAN.01 Ninfa Taveras 00:08:00 00:08:00 null F 2020-11-03 DONOVAN.01 Ninfa Taveras 00:08:00 00:08:00 null F 2020-11-03 DONOVAN.01 Ninfa Taveras 00:08:00 00:08:00 null F 2020-11-03 DONOVAN.01 Ninfa Taveras 00:08:00 00:08:00 null F 2020-11-03 DONOVAN.01 Ninfa Taveras 00:08:00 00:08:00 null F 2020-11-03 DONOVAN.01 Ninfa Taveras 00:08:00 00:08:00 null F 2020-11-03 DONOVAN.01 Ninfa Taveras 00:08:00 00:08:00 null F 2020-11-03 DONOVAN.01 Ninfa Taveras 00:08:00 00:08:00 null F 2020-11-03 DONOVAN.01 Ninfa Taveras 00:08:00 00:08:00 null F 2020-11-03 DONOVAN.01 Ninfa Taveras 00:08:00 00:08:00 null F 2020-11-03 DONOVAN.01 Ninfa Taveras 00:08:00 00:08:00 facility observation status value reference units lab abnor mal line range code notes [facility] F NEGATIVE NEGATIVE [facility] F CLEAR CLEAR [facility] F YELLOW unknown URINE [facility] C LEAN CATCH [facility] F NOT unknown [facility] Center INDICATED [facility] F NEGATIVE NEGATIVE mg/dL [facility] F NEGATIVE NEGATIVE mg/dL [facility] F NEGATIVE NEGATIVE [facility] F NOT unknown Medical Center INDICATED [facility] F NEGATIVE NEGATIVE [facility] F TRACE-INTA NEGATIVE [facility] F 5.5 5.0-7.5 PH [facility] F NEGATIVE NEGATIVE mg/dL [facility] F 1.010 1.002-1.03 Medical Center 0 [facility] F 0.2 NORMAL [facility] (NORMAL) L Social History date description facility [id number]
== END 2020-11-03 00:41 | disposition home or self-care (01) ==
LOC: ED 23:15
DX: J02.0 Streptococcal pharyngitis (principal); B95.5 Unspecified streptococcus as the cause of diseases classified elsewhere; E66.9 Obesity, unspecified; M54.5 Low back pain; I10 Essential (primary) hypertension; F17.200 Nicotine dependence, unspecified, uncomplicated
CPT/HCPCS: 81003; 87430; 96372; 99283; 99284; A9270; 81001; 87086

== ENCOUNTER 2020-11-07 10:05 | Emergency (ER) | payer OTHER, MEDICAID ==
[2020-11-07 10:15] VITALS: BP 149/87
[2020-11-07] MEDS ORDERED: DEXAMETHASONE 10 MG/ML VIAL PO STA (10:24)
--- NOTE | 2020-11-07 10:32 | ED Physician Documentation ---
History of Present Illness - Stated complaint Stated Complaint: SORE THROAT - Chief complaint Chief Complaint: Heent - History obtained from History obtained from: Patient - History of Present Illness Timing: How many days ago (5) Pain level max: 5 Pain level now: 5 - Additonal information Additional information: 29-year-old female presents to the emergency department stating that her throat is continuing to be sore after being diagnosed with strep pharyngitis a few days ago. Worse with swallowing, better with rest. Is not taking anything for pain. No fevers. No vomiting. Denies any possibility of . No abdominal pain. No rash. 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 - Present Medications Home Medications: Ambulatory Orders Medication Instructions Recorded Confirmed Lisinopril [Zestril] 20 mg PO DAILY PM 11/02/20 11/07/20 amLODIPine [Norvasc] 5 mg PO DAILY 11/02/20 11/07/20 buPROPion [Wellbutrin Sr] 150 mg PO DAILY 11/02/20 11/07/20 hydrOXYzine HCL [Hydroxyzine HCl] 25 mg PO DAILY 11/02/20 11/07/20 Amoxicillin 500 mg PO TID 7 Days #21 capsule 11/03/20 11/07/20 Amoxicillin 500 mg PO TID #9 capsule 11/07/20 Escitalopram Oxalate [Lexapro] 20 mg PO DAILY 11/07/20 11/07/20 Ibuprofen [Motrin] 800 mg PO Q8H PRN #30 tablet 11/07/20 - Allergies Allergies/Adverse Reactions: Allergies Allergy/AdvReac Type Severity Reaction Status Date / Time No Known Drug Allergies Allergy Verified 11/07/20 10:06 - Social History Does the pt smoke?: Yes Smoking Status: Current every day smoker Does the pt drink ETOH?: Yes Does the pt have substance abuse?: No - Immunizations Immunizations are current?: Yes Immunizations: TDAP current <10years - POLST Patient has POLST: No PD ED PE NORMAL - Vitals Vital signs reviewed: Yes - General General: Alert and oriented X 3, No acute distress - HEENT HEENT: Ears normal, Moist mucous membranes, Other (Posterior oropharynx is erythematous with tonsillar exudates. Normal phonation. No trismus. Uvula midline.) - Neck Neck: Supple, no meningeal sign, Other (Shotty anterior lymphadenopathy) - Cardiac Cardiac: RRR - Respiratory Respiratory: No respiratory distress, Clear bilaterally - Derm Derm: Warm and dry - Neuro Neuro: Alert and oriented X 3 - Psych Psych: Normal mood, Normal affect Results - Vitals Vitals: Vital Signs - 24 hr 11/07/20 10:09 Temperature 37.0 C Heart Rate 99 Respiratory 18 Rate Blood Pressure 149/87 H O2 Saturation 97 Oxygen O2 Source Room air PD MEDICAL DECISION MAKING - ED course Complexity details: reviewed old records, considered differential, d/w patient ED course: Patient with known strep pharyngitis. Given dexamethasone here for swelling. Tolerating p.o. without difficulty. No evidence of peritonsillar abscess or retropharyngeal abscess. Normal phonation. No trismus. We will extend her antibiotic course to a full 10 days as well. Patient counseled regarding signs and symptoms for which I believe and urgent re-evaluation would be necessary. Patient with good understanding of and agreement to plan and is comfortable going home at this time This document was made in part using voice recognition software. While efforts are made to proofread this document, sound alike and grammatical errors may occur. Departure - Departure Disposition: 01 Home, Self Care Clinical Impression: Strep pharyngitis Condition: Good Instructions: ED Strep Pharyngitis Conf Follow-Up: Your,doctor in 1 week [Other] Prescriptions: Amoxicillin 500 mg PO TID #9 capsule Ibuprofen [Motrin] 800 mg PO Q8H PRN #30 tablet PRN Reason: PAIN &/OR FEVER Comments: I normally treat strep pharyngitis for 10 days. We will extend the course of your antibiotics. You were given dexamethasone today which will help with the swelling. The Motrin will help as well. Follow-up with your doctor for further care.
[2020-11-07] MEDS ORDERED: CHERRY SYRUP 10 ML UDC PO ONE (10:42)
== END 2020-11-07 10:36 | disposition home or self-care (01) ==
LOC: ED 10:05
DX: J02.0 Streptococcal pharyngitis (principal); B95.5 Unspecified streptococcus as the cause of diseases classified elsewhere; I10 Essential (primary) hypertension; F17.200 Nicotine dependence, unspecified, uncomplicated
CPT/HCPCS: 99282; 99284; A9270

== ENCOUNTER 2020-11-18 20:23 | Outpatient (CLI) | payer OTHER, MEDICAID | END 2020-11-18 23:59 | disposition critical access hospital (66) | LOC: EMS 20:23 | PROVIDERS: ATTEND Surgery | DX: R40.4 Transient alteration of awareness (principal) | CPT/HCPCS: A0425; A0427 ==

== ENCOUNTER 2020-11-18 20:35 | Emergency (ER) | payer OTHER, MEDICAID ==
[2020-11-18] MEDS ORDERED: SODIUM CHLORIDE 0.9% 1,000 ML IV STA (20:43)
[2020-11-18] MEDS ORDERED: NALOXONE 0.4 MG/ML VIAL IVP STA (20:43)
[2020-11-18 21:02] LABS: BASOPHILS % (AUTO) 0.4 %; EOSINOPHILS # (AUTO) 0.2 10^3/uL (0.0-0.7); EOSINOPHILS % (AUTO) 1.8 %; HGB - HEMOGLOBIN 12.1 g/dL (12.0-16.0); LYMPHOCYTES % (AUTO) 33.3 %; MEAN CORPUSCULAR HEMOGLOBIN 29.7 pg (27.0-31.0); MEAN CORPUSCULAR HGB CONC 32.4 g/dL (32.0-36.0); MEAN CORPUSCULAR VOLUME 91.9 fL (81.0-99.0); MEAN PLATELET VOLUME 8.8 fL (7.9-10.8); MONOCYTES # (AUTO) 0.3 10^3/uL (0.0-1.0); MONOCYTES % (AUTO) 3.5 %; NEUTROPHILS # (AUTO) 5.3 10^3/uL (1.5-6.6); NEUTROPHILS % (AUTO) 59.4 %; PLT - PLATELET COUNT 228 10^3/uL (130-450); RED BLOOD COUNT 4.07 10^6/uL (4.20-5.40); RED CELL DISTRIBUTION WIDTH 12.8 % (12.0-15.0); WHITE BLOOD COUNT 8.9 x10^3/uL (4.8-10.8)
--- NOTE | 2020-11-18 21:05 | ED Physician Documentation ---
History of Present Illness - Stated complaint Stated Complaint: AMS - Chief complaint Chief Complaint: Resp - History obtained from History obtained from: Patient, EMS - History of Present Illness Timing: Today Pain level max: 0 Pain level now: 0 - Additonal information Additional information: 29-year-old female presents to the emergency department brought in by EMS. She states that she used fentanyl today. EMS states that she went unresponsive in the car with her friend. They gave 0.8 mg of Narcan with little change. They placed an OPA which they removed prior to arrival in the emergency department. Patient with a history of fentanyl abuse. Patient with a history of suicidal ideation which she states she is not suicidal currently. 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 : None HEENT: None Psych: Depression Musculoskeletal: None Derm: None - Past Surgical History Past Surgical History: Yes Ortho: Shoulder arthroplasty /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 - Present Medications Home Medications: Ambulatory Orders Medication Instructions Recorded Confirmed Lisinopril [Zestril] 20 mg PO DAILY PM 11/02/20 11/07/20 amLODIPine [Norvasc] 5 mg PO DAILY 11/02/20 11/07/20 buPROPion [Wellbutrin Sr] 150 mg PO DAILY 11/02/20 11/07/20 hydrOXYzine HCL [Hydroxyzine HCl] 25 mg PO DAILY 11/02/20 11/07/20 Amoxicillin 500 mg PO TID 7 Days #21 capsule 11/03/20 11/07/20 Amoxicillin 500 mg PO TID #9 capsule 11/07/20 Escitalopram Oxalate [Lexapro] 20 mg PO DAILY 11/07/20 11/07/20 Ibuprofen [Motrin] 800 mg PO Q8H PRN #30 tablet 11/07/20 - Allergies Allergies/Adverse Reactions: Allergies Allergy/AdvReac Type Severity Reaction Status Date / Time No Known Drug Allergies Allergy Verified 11/07/20 10:06 - Social History Does the pt smoke?: Yes Smoking Status: Current every day smoker Does the pt drink ETOH?: Yes Does the pt have substance abuse?: No - Immunizations Immunizations are current?: Yes Immunizations: TDAP current <10years - POLST Patient has POLST: No PD ED PE NORMAL - Vitals Vital signs reviewed: Yes - General General: Alert and oriented X 3, No acute distress, Well developed/nourished - HEENT HEENT: PERRL, Moist mucous membranes - Neck Neck: Supple, no meningeal sign - Cardiac Cardiac: RRR, Strong equal pulses - Respiratory Respiratory: No respiratory distress, Clear bilaterally - Abdomen Abdomen: Soft, Non tender, Non distended - Derm Derm: Warm and dry, No rash - Extremities Extremities: No calf tenderness / cord - Neuro Neuro: Alert and oriented X 3 - Psych Psych: Normal mood, Normal affect Results - Vitals Vitals: Vital Signs - 24 hr 11/18/20 11/18/20 20:39 21:30 Temperature 36.0 C L Heart Rate 100 88 Respiratory 20 28 H Rate Blood Pressure 126/76 110/44 L O2 Saturation 91 L 92 Oxygen O2 Source Nasal cannula - Labs Labs: Laboratory Tests 11/18/20 11/18/20 11/18/20 21:00 21:00 21:00 WBC 8.9 RBC 4.07 L Hgb 12.1 Hct 37.4 MCV 91.9 MCH 29.7 MCHC 32.4 RDW 12.8 Plt Count 228 MPV 8.8 Neut # (Auto) 5.3 Lymph # (Auto) 3.0 [place] # (Auto) 0.3 Eos # (Auto) 0.2 Baso # (Auto) 0.0 Absolute Nucleated RBC 0.02 Nucleated RBC % 0.2 Sodium 142 Potassium 3.8 Chloride 101 Carbon Dioxide 21 Anion Gap 20.0 H BUN 19 Creatinine 0.9 Estimated GFR (MDRD) 73 L Glucose 266 H Calcium 9.6 Total Bilirubin 0.3 AST 74 H ALT 58 Alkaline Phosphatase 75 Total Protein 7.2 Albumin 4.3 Globulin 2.9 Albumin/Globulin Ratio 1.5 Lipase 37 TSH 3.54 Urine Color Urine Clarity Urine pH Ur Specific Jensen Urine Protein Urine Glucose (UA) Urine Ketones Urine Occult Blood Urine Nitrite Urine Bilirubin Urine Urobilinogen Ur Leukocyte Esterase Urine RBC Urine WBC Ur Squamous Epith Cells Urine Bacteria Ur Microscopic Review Urine Culture Comments Urine HCG, Qual Salicylates < 6.0 Urine Opiates Screen Ur Oxycodone Screen Urine Methadone Screen Ur Propoxyphene Screen Acetaminophen < 10 L Ur Barbiturates Screen Ur Tricyclics Screen Ur Phencyclidine Scrn Ur Amphetamine Screen U Methamphetamines Scrn U Benzodiazepines Scrn Urine Cocaine Screen U Cannabinoids Screen Ethyl Alcohol 88.9 11/18/20 21:10 WBC RBC Hgb Hct MCV MCH MCHC RDW Plt Count MPV Neut # (Auto) Lymph # (Auto) [place] # (Auto) Eos # (Auto) Baso # (Auto) Absolute Nucleated RBC Nucleated RBC % Sodium Potassium Chloride Carbon Dioxide Anion Gap BUN Creatinine Estimated GFR (MDRD) Glucose Calcium Total Bilirubin AST ALT Alkaline Phosphatase Total Protein Albumin Globulin Albumin/Globulin Ratio Lipase TSH Urine Color YELLOW Urine Clarity CLEAR Urine pH 5.5 Ur Specific Jensen 1.020 Urine Protein 100 H Urine Glucose (UA) 250 H Urine Ketones NEGATIVE Urine Occult Blood TRACE-INTA Urine Nitrite NEGATIVE Urine Bilirubin NEGATIVE Urine Urobilinogen 0.2 (NORMAL) Ur Leukocyte Esterase NEGATIVE Urine RBC 0-5 Urine WBC 0-3 Ur Squamous Epith Cells FEW Squamous Urine Bacteria None Seen Ur Microscopic Review INDICATED Urine Culture Comments NOT INDICATED Urine HCG, Qual NEGATIVE Salicylates Urine Opiates Screen NEGATIVE Ur Oxycodone Screen NEGATIVE Urine Methadone Screen NEGATIVE Ur Propoxyphene Screen NEGATIVE Acetaminophen Ur Barbiturates Screen NEGATIVE Ur Tricyclics Screen NEGATIVE Ur Phencyclidine Scrn NEGATIVE Ur Amphetamine Screen NEGATIVE U Methamphetamines Scrn NEGATIVE U Benzodiazepines Scrn POSITIVE H Urine Cocaine Screen NEGATIVE U Cannabinoids Screen NEGATIVE Ethyl Alcohol PD MEDICAL DECISION MAKING - ED course Complexity details: reviewed old records, reviewed results, considered differential, d/w patient ED course: Patient is a 29-year-old female with what sounds like an unintentional overdose on fentanyl. She was given more Narcan in the emergency department. Patient will be monitored until she is stable. She will be reassessed at that point to determine if she needs social work. Patient will be signed out to the oncoming emergency department physician. This document was made in part using voice recognition software. While efforts are made to proofread this document, sound alike and grammatical errors may occur. Departure - Departure Clinical Impression: Accidental fentanyl overdose Qualifiers: Encounter type: initial encounter Qualified Code(s): T40.411A - Poisoning by fentanyl or fentanyl analogs, accidental (unintentional), initial encounter Condition: Stable
[2020-11-18 21:14] LABS: MUDS CUTOFF CONCENTRATIONS CUTOFF CONC BELOW:
[2020-11-18 21:19] LABS: BILIRUBIN,URINE NEGATIVE (NEGATIVE); GLUCOSE, URINE (UA) 250 mg/dL (NEGATIVE); KETONES,URINE (UA) NEGATIVE (NEGATIVE); LEUKOCYTE ESTERASE, URINE NEGATIVE (NEGATIVE); NITRITE,URINE NEGATIVE (NEGATIVE); OCCULT BLOOD,URINE TRACE-INTA (NEGATIVE); PH,URINE 5.5 PH (5.0-7.5); PROTEIN,URINE 100 mg/dL (NEGATIVE); UROBILINOGEN,URINE 0.2 (NORMAL) E.U./dL (NORMAL)
[2020-11-18 21:21] LABS: CLARITY,URINE CLEAR (CLEAR); HCG UR QUAL NEGATIVE
[2020-11-18 21:22] LABS: ACETAMINOPHEN < 10 ug/mL (10-30); ALBUMIN 4.3 g/dL (3.2-5.5); ALBUMIN/GLOBULIN RATIO 1.5 (1.0-2.2); ALKALINE PHOSPHATASE 75 IU/L (42-121); ALT ALANINE AMINOTRANSFERASE 58 IU/L (10-60); AST ASPARTATE AMINOTRANSFERASE 74 IU/L (10-42); BILIRUBIN,TOTAL 0.3 mg/dL (0.2-1.0); BUN - BLOOD UREA NITROGEN 19 mg/dL (6-20); CALCIUM 9.6 mg/dL (8.5-10.3); CARBON DIOXIDE - CO2 21 mmol/L (21-32); CHLORIDE 101 mmol/L (101-111); CREATININE 0.9 mg/dL (0.4-1.0); GLUCOSE 266 mg/dL (70-100); LIPASE 37 U/L (22-51); SALICYLATE < 6.0 mg/dL; TOTAL PROTEIN 7.2 g/dL (6.7-8.2)
[2020-11-18 21:26] LABS: BACTERIA,URINE None Seen /HPF (None Seen); RBC,URINE 0-5 /HPF (0-5); SQUAMOUS EPITHELIAL CELL,UR FEW Squamous (<= Few)
[2020-11-18 21:28] LABS: AMPHETAMINE SCREEN,URINE NEGATIVE (NEGATIVE); BENZODIAZEPINES SCREEN, URINE POSITIVE (NEGATIVE); COCAINE SCREEN URINE NEGATIVE (NEGATIVE); METHADONE SCREEN, URINE NEGATIVE (NEGATIVE); METHAMPHETAMINES SCREEN, URINE NEGATIVE (NEGATIVE); OPIATE SCREEN, URINE NEGATIVE (NEGATIVE); OXYCODONE SCREEN, URINE NEGATIVE (NEGATIVE); PROPOXYPHENE SCREEN, URINE NEGATIVE (NEGATIVE); TRICYCLIC ANTIDEPRESSANT,URINE NEGATIVE (NEGATIVE)
[2020-11-18 22:07] LABS: C. PNEUMONIAE- RESP PCR PANEL NOT DETECTED
--- NOTE | 2020-11-18 22:58 | ED Physician Documentation ---
ED Addendum - Addendum Addendum: 11/18/20 22:58 Patient endorsed to me by Dr. Velazco. Resting comfortably no acute distress with respiratory status normal. Will continue to monitor. 11/19/20 05:52 patient awake alert ambulatory and tolerating po, requesting to go home. NAMendelON. education given about drug overdose, monitoring, safe practices, and need for narcan availability in the home. patient insisting she is going to avoid opiates from now on. return precautions given. Plan to follow up with primary doctor. 11/19/20 05:54 Final impression: opiate overdose, drug abuse
[2020-11-19 05:40] VITALS: BP 148/82
== END 2020-11-19 06:00 | disposition home or self-care (01) ==
LOC: EDUNIT# → ED 20:35
DX: T40.411A Poisoning by fentanyl or fentanyl analogs, accidental (unintentional), initial encounter (principal); I10 Essential (primary) hypertension; F17.200 Nicotine dependence, unspecified, uncomplicated; Z20.828 Contact with and (suspected) exposure to other viral communicable diseases
CPT/HCPCS: 0202U; 80320; 80329; 81001; 81025; 83690; 96361; 96374; 99284; 99285; 36415; 80053; 80306; 80307; 81003; 84443; 85025; 87086

== ENCOUNTER 2020-12-27 08:00 | Outpatient (CLI) | payer MEDICAID, OTHER ==
--- NOTE | 2020-12-27 14:46 | XRAY Report ---
PROCEDURE: Ankle 3 View RT INDICATIONS: RIGHT ANKLE PAIN TECHNIQUE: 3 views of the ankle were acquired. COMPARISON: None FINDINGS: Bones: No fractures or dislocations. Ankle mortise is normally aligned. Small plantar calcaneal en thesophyte is seen. No suspicious bony lesions. Soft tissues: No tibiotalar joint effusion. Achilles tendon appears normal. IMPRESSION: Intact ankle mortise. No acute ankle fracture or dislocation. Small plantar calcaneal en thesophyte. Reviewed by: Vick Whatley MD on 12/27/2020 2:44 PM PST Approved by: Vick Whatley MD on 12/27/2020 2:44 PM PST Station ID: [id number]
== END 2020-12-27 23:59 | disposition home or self-care (01) ==
LOC: DI.S 08:00
PROVIDERS: ATTEND Physician Assistant Medical
DX: M25.571 Pain in right ankle and joints of right foot (principal); M77.31 Calcaneal spur, right foot

== ENCOUNTER 2021-04-03 15:55 | Emergency (ER) | payer MEDICAID ==
[2021-04-03 16:02] VITALS: BP 145/94
[2021-04-03 16:17] LABS: RAPID STREP SCREEN Negative (Negative)
--- NOTE | 2021-04-03 16:29 | ED Physician Documentation ---
PD HPI URI - Stated complaint Stated Complaint: SORE THROAT - Chief complaint Chief Complaint: Heent - History obtained from History obtained from: Patient - History of Present Illness Timing - onset: How many weeks ago (1) Timing duration: Weeks (1) Timing details: Gradual onset, Still present Associated symptoms: Rhinorrhea (mild), Sore throat, Swollen nodes. No: Fever, Chills, Nasal congestion, Dry cough, NVD Contributing factors: Unimmunized (has not had COVID vaccine. No exposures to COVID.). No: Sick contact, Travel, Immunocompromised Improves by: No: Medication (ibuprofen) Similar symptoms before: Diagnosis (has had similar with strep throat at times in the past (prior labs show group A strep and also Group C, but some negative cultures as well).) Recently seen: Not recently seen Review of Systems Constitutional: reports: Myalgias, Fatigue. 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 - Present Medications Home Medications: Ambulatory Orders Medication Instructions Recorded Confirmed Lisinopril [Zestril] 20 mg PO DAILY PM 11/02/20 11/07/20 amLODIPine [Norvasc] 5 mg PO DAILY 11/02/20 11/07/20 buPROPion [Wellbutrin Sr] 150 mg PO DAILY 11/02/20 11/07/20 hydrOXYzine HCL [Hydroxyzine HCl] 25 mg PO DAILY 11/02/20 11/07/20 Amoxicillin 500 mg PO TID 7 Days #21 capsule 11/03/20 11/07/20 Amoxicillin 500 mg PO TID #9 capsule 11/07/20 Escitalopram Oxalate [Lexapro] 20 mg PO DAILY 11/07/20 11/07/20 Ibuprofen [Motrin] 800 mg PO Q8H PRN #30 tablet 11/07/20 HYDROcod/ACETAM 5/325 [[place] 5/325] 1 ea PO Q6H PRN #10 tablet 04/03/21 dexAMETHasone [Decadron] 4 mg PO DAILY #5 tablet 04/03/21 diphenhydrAMINE ELIXIR [Benadryl 25 mg PO Q6H PRN #240 ml 04/03/21 Elixir] - Allergies Allergies/Adverse Reactions: Allergies Allergy/AdvReac Type Severity Reaction Status Date / Time No Known Drug Allergies Allergy Verified 04/03/21 15:59 - Social History Does the pt smoke?: Yes Smoking Status: Current every day smoker Does the pt drink ETOH?: Yes Does the pt have substance abuse?: No - Immunizations Immunizations are current?: Yes Immunizations: TDAP current <10years - POLST Patient has POLST: No PD ED PE NORMAL - Vitals Vital signs reviewed: Yes - General General: Alert and oriented X 3, No acute distress, Well developed/nourished - HEENT HEENT: No: Pharynx benign (mild redness of tonsils without exudate nor peritonsillar swelling. ) - Neck Neck: Supple, no meningeal sign, Other (mild left anterior adenopathy. ) - Cardiac Cardiac: RRR, No murmur - Respiratory Respiratory: Clear bilaterally - Abdomen Abdomen: Soft, Non tender - Derm Derm: Normal color, Warm and dry - Neuro Neuro: Alert and oriented X 3, No motor deficit, Normal speech Results - Vitals Vitals: Vital Signs - 24 hr 04/03/21 15:59 Temperature 36.5 C Heart Rate 100 Respiratory 16 Rate Blood Pressure 145/94 H O2 Saturation 99 Oxygen O2 Source Room air - Labs Labs: Laboratory Tests 04/03/21 16:03 Group A Strep Rapid Negative PD MEDICAL DECISION MAKING - ED course Complexity details: reviewed results (rapid strep negative. low centor score, await culture. Consider viral or environmental. She does not feel exposed to COvid. ), considered differential, d/w patient Departure - Departure Disposition: 01 Home, Self Care Clinical Impression: Acute pharyngitis Qualifiers: Pharyngitis/tonsillitis etiology: unspecified etiology Qualified Code(s): J02.9 - Acute pharyngitis, unspecified Condition: Stable Record reviewed to determine appropriate education?: Yes Instructions: ED Strep Pharyngitis Poss Follow-Up: Silvana Ordonez PA-C [Primary Care Provider] - Prescriptions: diphenhydrAMINE ELIXIR [Benadryl Elixir] 25 mg PO Q6H PRN #240 ml PRN Reason: Pain dexAMETHasone [Decadron] 4 mg PO DAILY #5 tablet HYDROcod/ACETAM 5/325 [[place] 5/325] 1 ea PO Q6H PRN #10 tablet PRN Reason: Pain Comments: Your rapid strep test is negative which is specific for group A strep. In the past you have had group A strep at times but also other types of strep (group B and group see several years ago). We will get the culture results from your throat test today in the next 1 to 2 days. We will call you if there is any signs of bacterial infection that would need antibiotics. Meanwhile we will presume inflammatory or viral and these would be commonly treated with steroid type anti-inflammatories, topical medication for numbing and also pain medicine if needed. Recheck if not improved well over the next several days with the above medicines. I am prescribing a short course of narcotic pain medication for you. These are potentially dangerous and addictive medications that should be used carefully. These medications may constipate you. Take an [id number] stool softener such as docusate twice daily with plenty of water while taking these medications. If you go 24 hours without a bowel movement, take [id number] MiraLAX, per package instructions. Do not drink or drive while taking these medications. If you received narcotic or sedating medications while in the emergency department do not drive for 24 hours. Store this medication in a safe, secure place and out of reach of children. It is a violation of federal law to give or sell this medication to another person or to use in a manner other than prescribed. The ED will not refill narcotic prescriptions, including prescriptions lost or stolen. You can dispose of unwanted medications at the [facility]'s office or at several pharmacies such as [facility]. Discharge Date/Time: 04/03/21 16:57
[2021-04-03] MEDS ORDERED: diphenhydrAMINE ELIXIR 25 MG/10 ML UDC PO STA (16:45)
[2021-04-03] MEDS ORDERED: CHERRY SYRUP 10 ML UDC PO ONE (16:45)
[2021-04-03] MEDS ORDERED: DEXAMETHASONE 10 MG/ML VIAL PO STA (16:45)
[2021-04-03] MEDS ORDERED: ACETAMINOPHEN 325 MG TABLET PO STA (16:45)
== END 2021-04-03 16:57 | disposition home or self-care (01) ==
LOC: ED 15:55
DX: J02.9 Acute pharyngitis, unspecified (principal); I10 Essential (primary) hypertension; F17.200 Nicotine dependence, unspecified, uncomplicated
CPT/HCPCS: 87070; 87430; 99283; A9270

== ENCOUNTER 2021-07-21 12:00 | Outpatient (CLI) | payer MEDICAID | END 2021-07-21 23:59 | disposition home or self-care (01) | LOC: LAB.S 12:00 | PROVIDERS: ATTEND Emergency Medicine | DX: L72.3 Sebaceous cyst (principal) | CPT/HCPCS: 87070; 87205 ==

== ENCOUNTER 2021-09-23 08:00 | Outpatient (CLI) | payer MEDICAID ==
--- NOTE | 2021-09-24 10:41 | XRAY Report ---
PROCEDURE: Foot 3 View RT INDICATIONS: Right foot pain. History of inversion injury 2 months ago. TECHNIQUE: 3 views of the foot were acquired. COMPARISON: X-ray 3 views of right ankle. FINDINGS: Bones: No fractures or dislocations. No suspicious bony lesions. Soft tissues: No tibiotalar joint effusion. Achilles tendon appears normal. IMPRESSION: 1. No acute osseous abnormalities. Reviewed by: Zeb Can MD on 09/24/2021 10:40 AM [facility] Approved by: Zeb Can MD on 09/24/2021 10:40 AM [facility] Station ID: [id number]
== END 2021-09-23 23:59 | disposition home or self-care (01) ==
LOC: DI.S 08:00
PROVIDERS: ATTEND Physician Assistant Medical
DX: M79.671 Pain in right foot (principal)